=== PATIENT | female | born 1945 | race Caucasian/White ===

== ENCOUNTER 2017-02-25 10:01 | Outpatient (RCR) | payer MEDICARE, OTHER ==
[~2017-02-25 10:01] MED LIST: PNT40TEC PO
== END 2017-04-02 09:34 | disposition home or self-care (01) ==
PROVIDERS: ATTEND Orthopaedic Surgery
DX: S42.252D Displaced fracture of greater tuberosity of left humerus, subsequent encounter for fracture with routine healing (principal)

== ENCOUNTER → 2017-03-07 | Outpatient (CLI) | payer MEDICARE, OTHER ==
--- NOTE | 2017-03-07 11:05 | Diagnostic Imaging Report ---
PROCEDURE: MRI left upper extremity without contrast. TECHNIQUE: Multiplanar, multisequence non contrast-enhanced MRI of the left upper extremity was accomplished. Indication: Fall. Shoulder fracture. Painful full range of motion. FINDINGS: There is bone marrow edema and flattening of the anterolateral aspect of the humeral head compatible with a depressed fracture. This is probably subacute with relatively mild degree of contusion and bone marrow edema for the deformity. Alternatively this could be an acute contusion on top of an old fracture. There is no bone marrow abnormality seen in the scapula. The acromioclavicular joint demonstrates mild inferior osteophyte formation. This is abutting the myotendinous junction of the supraspinatus which demonstrate high-grade partial tears along the articular and bursal side involving also the infraspinatus. The subscapular tendon appears unremarkable. The long head biceps tendon is within its groove. The labrum demonstrates increased signal at and posterior to the biceps anchor, suggestive of a SLAP tear. The muscle bulk and signal is normal. IMPRESSION: 1. There is a bone contusion with a deformity along the anterolateral aspect of the humeral head. This could be related to a subacute depressed fracture or contusion on top of an old injury and deformity. 2. High-grade partial tears in the supraspinatus and infraspinatus tendons. 3. Suggestion of a focal SLAP tear near the biceps anchor. Report was faxed to office of Dr. Arellano by charles at 11:08 am. Dictated by: Dictated on workstation # [id number]
== END ==
LOC: RAD 09:42
PROVIDERS: ATTEND Orthopaedic Surgery
DX: S40.012A Contusion of left shoulder, initial encounter (principal); M75.102 Unspecified rotator cuff tear or rupture of left shoulder, not specified as traumatic; X58.XXXA Exposure to other specified factors, initial encounter; Y99.8 Other external cause status
CPT/HCPCS: 73221

== ENCOUNTER → 2017-05-01 | Outpatient (CLI) | payer MEDICARE, OTHER ==
--- NOTE | 2017-05-01 09:49 | Diagnostic Imaging Report ---
Examination: DEXA scan. Indication: osteopenia Technique: Bone mineral density estimated based on dual energy radiography over the lumbar spine and femoral necks, was performed. Findings: The lumbar spine T-score is -0.8. The T-score over the left femoral neck is -0.7 and on the right side is -0.2. IMPRESSION: Bone mineral density is near the lower limits of normal. Dictated by: Dictated on workstation # [id number]
--- NOTE | 2017-05-02 20:15 | Diagnostic Imaging Report ---
Bilateral screening mammogram 2D views with tomosynthesis. The current study was also evaluated with a Computer Aided Detection (CAD) system. INDICATION: Screening. No current complaints stated on the questionnaire. COMPARISON: 09/13/13 FINDINGS: The breasts are composed of scattered fibroglandular densities. There are scattered benign-appearing calcifications. Allowing for technique and positional differences, no suspicious change is seen. IMPRESSION: No significant change. ACR BI-RADS Category 2: Benign findings. Result letter will be mailed to the patient. Note: At least 10% of breast cancer is not imaged by mammography. Dictated on workstation # [id number]
== END ==
LOC: RAD 08:47
PROVIDERS: ATTEND Family Medicine
DX: Z12.31 Encounter for screening mammogram for malignant neoplasm of breast (principal); Z13.820 Encounter for screening for osteoporosis; E55.9 Vitamin D deficiency, unspecified
CPT/HCPCS: 77067; 77080

== ENCOUNTER → 2017-08-05 | Outpatient (CLI) | payer MEDICARE, OTHER ==
--- NOTE | 2017-08-05 11:20 | Diagnostic Imaging Report ---
INDICATION: Hip replacement. TECHNIQUE: PA and lateral views of the chest were obtained. COMPARISON: 08/10/2013. FINDINGS: The heart size is normal. The mediastinum is unremarkable. There is old granulomatous disease in the left hilum. There is no pleural effusion, pneumothorax, or pneumonia. IMPRESSION: No acute cardiopulmonary abnormality. Dictated by: Dictated on workstation # [id number]
== END ==
LOC: CARD 10:12
PROVIDERS: ATTEND Nurse Practitioner Family
DX: Z01.810 Encounter for preprocedural cardiovascular examination (principal); Z01.811 Encounter for preprocedural respiratory examination; M16.11 Unilateral primary osteoarthritis, right hip
CPT/HCPCS: 71046; 93005

== ENCOUNTER 2017-11-17 09:00 | Outpatient (CLI) | payer MEDICARE, OTHER ==
[~2017-11-17] VITALS: Ht 170.2 cm; Wt 80.7 kg
== END 2017-11-17 10:20 ==
LOC: PREOP 09:00
PROVIDERS: ATTEND Specialist
DX: Z01.818 Encounter for other preprocedural examination (principal); H25.12 Age-related nuclear cataract, left eye

== ENCOUNTER 2017-11-21 06:01 | Day surgery (SDC) | payer MEDICARE, OTHER ==
[~2017-11-21] VITALS: Ht 170.2 cm; Wt 80.7 kg
--- OUTSIDE RECORDS SUMMARY | 2017-11-21 06:04 | XMS REPORT | Clinical Summary ---
Author Author [facility] Organization [facility] Address Unknown Phone Unavailable Care Team Providers Care Grades 1 Thru 6 Home Teacher Name Role Phone Linette Canada MD PCP Leatha Madsen MD Unavailable José Luis Bruner MD Unavailable Juan Clayton MD Unavailable Jese Trujillo MD Unavailable Joaquim Haynes RN Unavailable Unavailable Kevin Hamomnds MD Unavailable Wilma Shepard RN Unavailable Unavailable Source Comments Some departments are not documenting in the electronic medical record. If you do not see the information that you expected, contact Release of Information in the Health Information Management department at [phone] for further assistance in locating additional records.[facility] Allergies Active Allergy Reactions Severity Noted Date Comments Benzo-Creme RASH, EDEMA 12/14/2010 Current Medications Prescription Sig. Disp. Refills Start End Date Status Date aluminum/magnesium Take 30 mL by mouth every 1 Bottle 1 02/28/20 Active hydroxide (MAALOX) 8 hours as needed. 11 200/200 mg/5 mL PO Susp oral suspension acetaminophen/codeine Take 12.5 mL by mouth 1 Bottle 0 02/28/20 Active (TYLENOL NO.3) 120/12 every 6 hours as needed 11 mg/5 mL PO elixir for Pain. Please ensure patient receives 2 week supply. oxyCODONE (ROXICODONE) 1 Take 5 mL by mouth every 150 mL 0 03/29/20 Active mg/mL PO oral solution 6 hours as needed. 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 Malnutrition of moderate degree (HCC) 02/22/2011 Neuroendocrine tumor 01/16/2011 Pancreatic duct leak 01/16/2011 Immunizations Name Dates Previously Given Next Due Acthib Vaccine 12/14/2010 Meningococcal Vaccine 12/14/2010 Pneumococcal Vaccine 12/14/2010 (23-Elvira Adult) Family History Medical History Relation Name Comments Cancer Brother Arthritis-osteo Father Cancer Father Hypertension Father Diabetes Maternal Grandfather Relation Name Status Comments Brother Father Maternal Grandfather Social History Tobacco Use Types Packs/Day Years Used Date Never Smoker Smokeless Tobacco: Never Used Alcohol Use Drinks/Week oz/Week Comments No Sex Assigned at Date Recorded Not on file Last Filed Vital Signs Vital Sign Reading Time Taken Blood Pressure 120/63 03/29/2011 7:49 AM CDT Pulse 69 03/29/2011 7:49 AM CDT Temperature 36.8 C (98.2 F) 03/29/2011 7:49 AM CDT Respiratory Rate 16 03/11/2011 9:58 AM CDT Oxygen Saturation 93% 03/29/2011 7:49 AM CDT Inhaled Oxygen - - Concentration Weight 81.1 kg (178 lb 14.4 oz) 03/29/2011 3:40 AM CDT Height 170.2 cm (5' 7.01") 03/25/2011 10:00 AM CDT Body Mass Index 28.01 03/29/2011 3:40 AM CDT Plan of Treatment Health Maintenance Due Date Last Done Comments HEPATITIS C SCREENING 1945 PHYSICAL (COMPREHENSIVE) 1954 EXAM PERTUSSIS VACCINE 1958 TETANUS VACCINE 1964 BREAST CANCER SCREENING 1987 COLORECTAL CANCER 1997 SCREENING SHINGLES VACCINE 2007 OSTEOPOROSIS SCREENING 2012 PREVNAR/PNEUMOVAX (#1) 2012 12/14/2010 INFLUENZA VACCINE 04/27/2018 Results Not on filefrom Last 3 Months
--- OUTSIDE RECORDS SUMMARY | 2017-11-21 06:04 | XMS REPORT | Clinical Summary ---
Author Author Korey Kumar MD, James Organization [facility], [facility] Address [address] [place] [address] Phone Care Team Providers Care Trip Rider Name Role Phone Korey Kumar MD, James Unavailable [ ] Conditions or Problems Problem Name Problem Code Onset Date Status Entry Date Provider Comment Standard Description Annotate Pain in right hip 74593554 (SNOMED CT) Active Irish Leap Hip pain Degenerative joint disease, hip, right 326261777 (SNOMED CT) Active Irsih Leap Osteoarthritis of hip Medications Medication Instructions Start Date Stop Date Generic Name [facility] Provider TRAMADOL HCL ER 100 MG [id number] i cap daily TRAMADOL HCL [id number] Bela Jones TYLENOL 325 MG CAPS BID ACETAMINOPHEN [id number] Bela Jones LATRICE LOW DOSE 81 MG CHEW daily ASPIRIN [id number] Bela Jones ADVIL COLD & SINUS LIQUI-GELS 30-200 MG CAPS PSEUDOEPHEDRINE- IBUPROFEN [id number] Bela Jones Medications Administered No information available. Allergies, Adverse Reactions, Alerts Observed no known allergies at Results Date Name Value Unit Range Flag Description Clinical Summary: Data Submitted by Patient in Portal IMAGING HX MRI -[facility], Apr 2016, [place], [place] summary of prior imaging studies DEP ROS ENDO Denies endocrine symptoms data entered by patient, review of systems, endocrine DEP ROS SKIN Denies skin symptoms data entered by patient, review of systems, skin DEP ROS PSYC Denies mental health symptoms data entered by patient, review of systems, psychiatric DEP ROS NEUR Denies neurological symptoms data entered by patient, review of systems, neurology DEP ROS MUSK hip pain, muscle weakness data entered by patient, review of systems, musculoskeletal DEP ROS Denies Genitourinary symptoms data entered by patient, review of systems, genitourinary DEP ROS CARD Denies heart symptoms data entered by patient, review of systems, cardiac DEP ROS PULM Denies respiratory symptoms data entered by patient, review of systems, pulmonary DEP ROS GI Denies gastrointestinal symptoms data entered by patient, review of systems, gastrointestinal DEP ROS HEME Denies Hematologic/Oncologic symptoms data entered by patient, review of systems, hematological DEP ROS GENL Seen primary care physican in the last year data entered by patient, review of systems, general (such as fever, chills, weight change, etc.) [id number] Better GE use only - for LinkLogic import when terms are not otherwise specified TPI April 2017 Trigger point injection PT MASSAGE No physical therapy, massage ICETRTMT No Patient has tried ice for pain PAINRELFPAST daily pain relief methods, past HEATTRTMT Yes Patient has tried heat for pain CHIROPR PROB No 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 list of medications ALLERGY COMM Allergic to topical Benzocaine comments about allergies FH HTN Mother,Father,Sister,Brother hypertension, family hx FH DM TYPE1 Maternal Grandfather diabetes mellitus, type I, family history FH OTHER CA Father,Brother cancer, other, family hx FH ARTHRITIS Mother,Father arthritis, family hx DEP ALG LIST I don't have any food allergies.,I don't have any environmental allergies. Data entered by patient, allergy list DEP MED LIST Tramadol 100 mg Cap Er, 1 times per day,Ibuprofen / Pseudoephedrine 200 mg;30 mg Tab, 2 times per day,Tylenol 500 mg Tab, 2 times per day Data entered by patient, medication list Clinical Summary: Patient Portal Indicator IZABELA Y This will be used to establish a PIN number for patients to register in the Patient Portal. Office Visit: New. Rt hip pain. Films in hand. Medicare/. Sched w/ p... RADIOLOGYRES Osteoarthritis Hip- AP Pelvis and lateral of the hip demonstrates osteoarthritis joint space narrowing. Sclerosis and osteophyte formation noted radiology results, general ORALTOBACUSE No Tobacco smoking status NHIS SMOK STATUS Never smoker Tobacco smoking status [facility] CARD RSK GRP No cardiac risk group FALLRISK no Fall risk assessment XRAY HX Yes xray history XRAY TYPE MRI xray, type Plan of Care No information available. Procedures Code Procedure Name Date Entry Date CPT-73944 Hip 2 Views [id number] SNOMED-CT: 485377598 Hx of Flu Vax [id number] SNOMED-CT: 733200331 Hx of Pneumovax Given CPT-1111F Discharge medications reconciled w/ current medication list CPT-G8629 order for antibiotic to be given within 1 hour prior to surgical incision CPT-4040F Pneumococcal vaccine administered or previously received CPT-G8730 Pain assessment documented as positive and f/u plan is documented CPT-1111F Discharge medications reconciled w/ current medication list CPT-1111F Discharge medications reconciled w/ current medication list [id number] SNOMED-CT: 539798114 Hx of Flu Vax CPT-1111F Discharge medications reconciled w/ current medication list Vital Signs Date Name Value Unit Description BMI (Body Mass Index) 33.63 kg/m2 Body Mass Index [Ratio] BP Diastolic 80 mm[Hg] blood pressure, diastolic - 8462-4 BP Systolic 110 mm[Hg] blood pressure, systolic - 8480-6 Height 61 [in_us] height E&M - 8302-2 Weight Measured 178 [lb_av] weight E&M - 3141-9 Encounters Code Encounter Date Provider Facility CPT-35827 80637- New Level III Jerman Nair Jr, MD [facility], [facility] Social History Concept Description Observation Name Observation Value Units Start Date Alcohol use ETOH USE No Never smoker SMOK STATUS Never smoker Alcohol use ETOH USE No Never smoker SMOK STATUS never smoker
--- OUTSIDE RECORDS SUMMARY | 2017-11-21 06:04 | XMS REPORT | Clinical Summary ---
Author Author Kya Ruth Organization [facility], [facility] Address [address] [place] [address] Phone Care Team Providers Care Ela Teacher Name Role Phone Faraz Kya Unavailable Conditions or Problems No information available. Medications No information available. Medications Administered No information available. Allergies, Adverse Reactions, Alerts No information available. Results Date Name Value Unit Range Flag Description Clinical Summary: Data Submitted by Patient in Portal ALCDRUG No Abused drugs or alcohol? TRAVEL HX Yes travel history #DRINKS/OCCS N/A alcohol use, number maximum drinks per occasion ETOH USE No alcohol use ORALTOBACUSE No Tobacco smoking status NHIS SMOK STATUS never smoker Tobacco smoking status HIIS FH ANEST CMP No family hx of anesthesia complications FATHER A/D father of patient is alive or MOTHER A/D Alive mother of patient is alive or LASTPNEUMVAX within the last 2 years pneumovax ( pneumonia vaccine), last received FLU VAX 6-12 months ago influenza immunization (Flu Vax ) has been administered EXERTSOBHX Yes exertional shortness of breath, hx of ASTH BREATH No Asthma Shortness of breath symptoms CARD RSK GRP No cardiac risk group CARD RF CMTS No Cardiac risk factor comments CHF TYPE No congestive heart failure (CHF), type CHF SYMPTOMS No congestive heart failure symptoms PMH CARD Denies Cardiac Problems cardiology, past medical hx PMH OTHER Denies Other Problems problems, other, hx of PMH MUL PREG Not multiple pregnancies, hx of PMH GUPROBS Denies Urinary problems genitourinary disorder, hx of PMH HEPTITIS Denies hepatic problems hepatitis, hx of PMH GERD Denies gastrointestinal problems gastroesophageal reflux disease (GERD), hx of PMH HEMATLGC Denies hematologic problems hematologic disease, hx of PULMPMH Denies respiratory problems Pulmonary Past Medical History PMH CANCER Denies History of Cancer cancer, hx of PMH-ENDOCOM Denies Endocrine problems endocrinology, past medical history, comments PMH NPSYCH Denies Mental Health problems neuropsychological disease, hx of PMH NEURO Denies Neurological problems past medical history, neurology PMH RHEUM Arthritis Past Medical History Rheumatology XRAY HX Yes xray history IMAGING HX MRI -[facility], Apr 2016, [place], [place] summary of prior imaging studies XRAY TYPE MRI xray, type PMH SURGERY 1/3 of pancreas removed 2010 surgery, other , hx of PMH ABD SURG No Past Medical Hx of Abdominal Surgery PMH URO SX No Past Medical Hx of Urological Surgery CARDIO SURG No cardiovascular surgery, hx of HXENTSURG No History of [facility]; hysterectomy genitourinary section, past surgical history, comments [employer] SURGERY Yes gynecologic surgery, [facility] Knee musculoskeletal section, past surgical history, comments HXMUSCSURG Yes History of musculoskeletal surgery DEP ROS ENDO Denies endocrine symptoms data [...] PROB No 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 Plan of Care Type Date Detail Appointment 03:00 [place], [address] , [address], [place], [address], Procedures No information available. Vital Signs No information available. Encounters No information available. Social History Concept Description Observation Name Observation Value Units Start Date Alcohol use ETOH USE No Never smoker SMOK STATUS never smoker
--- OUTSIDE RECORDS SUMMARY | 2017-11-21 06:05 | XMS REPORT | CCD ---
Author Author Stefanie Presley Organization [facility] Address [address] [place] [address] Phone Care Team Providers Care [employer]ucer Machine Name Role Phone PP Unavailable CCM Unavailable Summary Purpose Interface Exchange Insurance Providers Payer name Policy type / Coverage type Covered green party ID Effective Begin Date Effective End Date WPS Medicare Part B Medicare Part B [id number] Unknown Unknown [facility] Medicare Part B [id number] Unknown Unknown Family history Father Diagnosis Age At Onset Cancer Unknown Arthritis Unknown Hypertension Unknown Mother Diagnosis Age At Onset Osteoporosis Unknown Hypertension Unknown Brother Diagnosis Age At Onset Hypertension Unknown Sister Diagnosis Age At Onset Hypertension Unknown Social History Social History Element Codes Description Effective Dates Marital status Unknown Tim PaulinoRahul Cantu 06/26/2015 Number of children Unknown 5 4 Living 06/26/[address]: 586401605 Never smoker 06/26/[address]: 174831324 Never drinks alcohol 06/26/2015 Has the patient ever used illegal drugs? Unknown Has never used illegal drugs 06/26/2015 Allergies, Adverse Reactions, Alerts Allergies, Adverse Reactions, Alerts data not found Past Medical History Illness Codes Condition Status Onset Date Resolved Date Dysuria ICD-9: 788.1 ICD-10: R30.0 Active 08/05/2017 Unknown Benign paroxysmal vertigo, bilateral ICD-9: 386.11 ICD-10: H81.13 Active 04/28/2017 Unknown Displaced fracture of greater tuberosity of left humerus, subsequent encounter for fracture with delayed healing ICD-9: V54.11 ICD-10: S42.252G Active 04/22/2017 Unknown Muscle weakness (generalized) ICD-9: 728.87 ICD-10: M62.81 Active 06/25/2015 Unknown Pain in left shoulder ICD-9: 719.41 ICD-10: M25.512 Active 04/22/2017 Unknown Pain in right hip ICD- 9: 719.45 ICD-10: M25.551 Active 04/22/2017 Unknown Vitamin D deficiency, unspecified ICD-9: 268.9 ICD-10: E55.9 Active 01/14/2016 Unknown Other seborrheic keratosis ICD-9: 702.19 ICD-10: L82.1 Active 01/14/2016 Unknown Acute maxillary sinusitis, unspecified ICD-9: 461.0 ICD-10: J01.00 Active 08/13/2015 Unknown Obesity, unspecified ICD-9: 278.00 ICD-10: E66.9 Active 08/13/2015 Unknown Abnormal results of thyroid function studies ICD-9: 794.5 ICD-10: R94.6 Active 06/25/2015 Unknown Dorsalgia, unspecified ICD-9: 724.5 ICD-10: M54.9 Active 06/25/2015 Unknown Personal history of malignant neoplasm of pancreas ICD-9: V10.09 ICD-10: Z85.07 Active 06/25/2015 Unknown Problems Condition Codes Effective Dates Condition Status Dysuria ICD-9: 788.1 ICD-10: R30.0 08/05/2017 Active Benign paroxysmal vertigo, bilateral ICD-9: 386.11 ICD-10: H81.13 04/28/2017 Active Displaced fracture of greater tuberosity of left humerus, subsequent encounter for fracture with delayed healing ICD-9: V54.11 ICD-10: S42.252G 04/22/2017 Active Muscle weakness (generalized) ICD-9: 728.87 ICD-10: M62.81 06/25/2015 Active Pain in left shoulder ICD-9: 719.41 ICD-10: M25.512 04/22/2017 Active Pain in right hip ICD- 9: 719.45 ICD-10: M25.551 04/22/2017 Active Vitamin D deficiency, unspecified ICD-9: 268.9 ICD-10: E55.9 01/14/2016 Active Other seborrheic keratosis ICD-9: 702.19 ICD-10: L82.1 01/14/2016 Active Acute maxillary sinusitis, unspecified ICD-9: 461.0 ICD-10: J01.00 08/13/2015 Active Obesity, unspecified ICD-9: 278.00 ICD-10: E66.9 08/13/2015 Active Abnormal results of thyroid function studies ICD-9: 794.5 ICD-10: R94.6 06/25/2015 Active Dorsalgia, unspecified ICD-9: 724.5 ICD-10: M54.9 06/25/2015 Active Personal history of malignant neoplasm of pancreas ICD-9: V10.09 ICD-10: Z85.07 06/25/2015 Active Medications Medication Codes Instructions Start Date Stop Date Status Fill Instructions Keflex 500 mg capsule RxNorm: 275009 1 Capsule(s) PO TID 201708/11/2017 Active Keflex 500 mg capsule RxNorm: 097369 1 Capsule(s) PO TID 201708/04/2017 Inactive Vitamin D3 5,000 unit tablet RxNorm: 414065 1 Tablet(s) PO daily 07/23/2017 10/20/2017 Active Start after vit d2 treatment Vitamin D2 50,000 unit capsule RxNorm: 537403 TAKE ONE CAPSULE BY MOUTH ONCE WEEKLY. TAKE VITAMIN D3 5000 UNIT TABLET DAILY AFTER VITAMIN D2 COMPLETE. 07/14/2017 10/05/2017 Active Kenalog 40 mg/mL suspension for injection RxNorm: 6064323 1 Milliliter(s) Inj 04/28/2017 04/28/2017 Inactive Vitamin D2 50,000 unit capsule RxNorm: 191966 1 Capsule(s) PO QW x12 04/25/2017 07/13/2017 Inactive Take vit d3 5000 units daily after vit d2 complete Vitamin D3 5,000 unit tablet RxNorm: 371700 1 Tablet(s) PO daily 04/25/2017 04/24/2017 Inactive Start after vit d2 treatment tramadol 50 mg tablet RxNorm: 028836 1 Tablet(s) PO TID as needed 04/22/2017 No Stop Date Active aspirin 81 mg tablet RxNorm: 379244 1 Tablet(s) PO daily 201606/15/2018 Active Belviq XR 20 mg tablet,extended release RxNorm: 2703217 1 Tablet(s) PO daily 04/22/2017 06/20/2017 Inactive Metrogel 1 % topical RxNorm: 070683 1 Application TOP as needed for rosacea 11/04/2016 No Stop Date Active tramadol 50 mg tablet RxNorm: 252014 1 Tablet(s) PO TID as needed for pain 08/02/2016 10/20/2016 Inactive tramadol 50 mg tablet RxNorm: 622516 1 Tablet(s) PO TID as needed for pain 08/02/2016 08/01/2016 Inactive Vitamin D2 50,000 unit capsule RxNorm: 627813 1 Capsule(s) PO QW 01/15/2016 04/13/2016 Inactive Belviq 10 mg tablet RxNorm: 2376543 Tablet(s) TAKE ONE TABLET BY MOUTH TWICE A DAY 01/10/2016 01/14/2016 Inactive Vitamin D2 50,000 unit capsule RxNorm: 609575 TAKE ONE CAPSULE BY MOUTH ONCE WEEKLY 09/25/2015 12/17/2015 Inactive Belviq 10 mg tablet RxNorm: 3317216 Tablet(s) TAKE ONE TABLET BY MOUTH TWICE A DAY 09/11/2015 10/09/2015 Inactive azithromycin 250 mg tablet RxNorm: 101415 1 Tablet(s) PO UD take two pills on day #1, then one pill daily x 4 days 08/14/2015 08/18/2015 Inactive Noritate 1 % topical cream RxNorm: 686458 1 Application TOP PRN use for rosacea 08/14/2015 11/03/2016 Inactive Belviq 10 mg tablet RxNorm: 9644120 Tablet(s) TAKE ONE TABLET BY MOUTH TWICE A DAY 08/11/2015 09/05/2015 Inactive Belviq 10 mg tablet RxNorm: 4777470 TAKE ONE TABLET BY MOUTH TWICE A DAY 08/07/2015 08/10/2015 Inactive Belviq 10 mg tablet RxNorm: 3806344 1 Tablet(s) PO BID 201408/08/2015 Inactive Vitamin D2 50,000 unit capsule RxNorm: 639942 1 Capsule(s) PO QW 07/03/2015 09/24/2015 Inactive Belviq 10 mg tablet RxNorm: 5940711 1 Tablet(s) PO BID 201401/09/2016 Inactive Vitamin D2 50,000 unit capsule RxNorm: 748713 1 Capsule(s) PO QW No Start Date 07/02/2015 Inactive biotin 5 mg tablet RxNorm: 997351 1 Tablet(s) PO daily No Start Date 04/21/2017 Inactive Metrogel 1 % topical RxNorm: 945378 1 Application TOP as needed for rosacea No Start Date 11/03/2016 Inactive magnesium oxide 400 mg capsule RxNorm: 572933 1 Capsule(s) PO daily No Start Date 04/21/2017 Inactive multivitamin oral RxNorm: 89755 oral No Start Date 04/21/2017 Inactive aspirin 81 mg tablet RxNorm: 074142 1 Tablet(s) PO daily No Start Date 04/21/2017 Inactive PreserVision AREDS oral RxNorm: 477709 oral No Start Date 04/21/2017 Inactive Medication Administered Medication Codes Instructions Start Date Status Kenalog 40 mg/mL suspension for injection RxNorm: 1815294 1Milliliter 04/28/2017 No longer Active Immunizations Vaccine Codes Date Status Influenza CVX: 141 05/08/2016 completed Influenza CVX: 141 04/27/2015 completed Pneumococcal (Adult) CVX: 33 04/27/2015 completed Assessments Condition Codes Effective Dates Dysuria ICD-10: R30.0 ICD-9: 788.1 08/05/2017 Benign paroxysmal vertigo, bilateral ICD-10: H81.13 ICD-9: 386.11 04/28/2017 Vitamin D deficiency, unspecified ICD-10: E55.9 ICD-9: 268.9 04/22/2017 Pain in right hip ICD-10: M25.551 ICD-9: 719.45 04/22/2017 Displaced fracture of greater tuberosity of left humerus, subsequent encounter for fracture with delayed healing ICD-10: S42.252G ICD-9: V54.11 04/22/2017 Muscle weakness (generalized) ICD-10: M62.81 ICD-9: 728.87 04/22/2017 Pain in left shoulder ICD-10: M25.512 ICD-9: 719.41 04/22/2017 Other seborrheic keratosis ICD-10: L82.1 ICD-9: 702.19 01/15/2016 Obesity, unspecified ICD-10: E66.9 ICD-9: 278.00 08/14/2015 Acute maxillary sinusitis, unspecified ICD-10: J01.00 ICD-9: 461.0 08/14/2015 Dorsalgia, unspecified ICD-10: M54.9 ICD-9: 724.5 06/26/2015 Abnormal results of thyroid function studies ICD-10: R94.6 ICD-9: 794.5 06/26/2015 Personal history of malignant neoplasm of pancreas ICD-10: Z85.07 ICD-9: V10.09 06/26/2015 Reason For Visit Reason For Visit Effective Dates Notes dizziness 04/28/2017 well woman exam (65+ years) 04/22/2017 midback pain 01/15/2016 midback pain 08/14/2015 midback pain 06/26/2015 Results Observation Observation Code Item Item Code Result Date Culture Urine [id number] URINE CULTURE SEE NOTES 08/08/2017 Culture Urine [id number] Continued Results 08/08/2017 Urine Culture Ucult Complete >100,000 col/ml aerobic growth sent to ref lab 08/06/2017 Comp Metabolic Ctl271 NA 143 mEq/L 07/30/2017 Comp Metabolic Ooz746 K 4.5 mEq/L 07/30/2017 Comp Metabolic Ygo631 CL 103 mEq/L 07/30/2017 Comp Metabolic Iyg965 CO2 30.0 mEq/L 07/30/2017 Comp Metabolic Fjy908 ANION GAP 15 07/30/2017 Comp Metabolic Iqd529 GLUCOSE 98 mg/dL 07/30/2017 Comp Metabolic Lgp824 Creat 0.7 mg/dL 07/30/2017 Comp Metabolic Mmo928 eGFR 92 ml/min/1.73m2 07/30/2017 Comp Metabolic Fgc456 BUN 17 mg/dL 07/30/2017 Comp Metabolic Ldu741 B/C Ratio 25.4 Ratio 07/30/2017 Comp Metabolic Idf219 CALCIUM 10.4 mg/dL 07/30/2017 Comp Metabolic Uzv632 ALK PHOS 93 U/L 07/30/2017 Comp Metabolic Yol568 AST(SGOT) 14 U/L 07/30/2017 Comp Metabolic Dwv314 ALT(SGPT) 10 U/L 07/30/2017 Comp Metabolic Pmo214 BILI T 0.8 mg/dL 07/30/2017 Comp Metabolic Eyf895 ALBUMIN 5.1 g/dL 07/30/2017 Comp Metabolic Jbk737 TPRO 7.2 g/dL 07/30/2017 Comp Metabolic Phd035 GLOB 2.1 g/dL 07/30/2017 Comp Metabolic Qgx397 A/G Ratio 2.4 Ratio 07/30/2017 Comp Metabolic Xtd824 Osmo 286 mOsmo 07/30/2017 Cbc With Differential Ord2 WBC 4.82 K/ul 07/30/2017 Cbc With Differential Ord2 RBC 4.46 M/ul 07/30/2017 Cbc With Differential Ord2 HGB 13.8 g/dl 07/30/2017 Cbc With Differential Ord2 Neut% 67.7 % 07/30/2017 Cbc With Differential Ord2 HCT 42.6 % 07/30/2017 Cbc With Differential Ord2 MCV 95.5 fl 07/30/2017 Cbc With Differential Ord2 Lymph% 19.3 % 07/30/2017 Cbc With Differential Ord2 Payette% 11.2 % 07/30/2017 Cbc With Differential Ord2 MCH 30.9 pg 07/30/2017 Cbc With Differential Ord2 Eos% 1.2 % 07/30/2017 Cbc With Differential Ord2 MCHC 32.4 pg 07/30/2017 Cbc With Differential Ord2 Baso% 0.6 % 07/30/2017 Cbc With Differential Ord2 PLT 203 K/ul 07/30/2017 Cbc With Differential Ord2 Neut ABS# 3.26 K/ul 07/30/2017 Cbc With Differential Ord2 RDW 14.9 % 07/30/2017 Cbc With Differential Ord2 Lymph ABS# 0.93 K/ul 07/30/2017 Cbc With Differential Ord2 [place] ABS# 0.5 K/ul 07/30/2017 Cbc With Differential Ord2 Eos ABS# 0.1 K/ul 07/30/2017 Cbc With Differential Ord2 Baso ABS# 0.0 K/ul 07/30/2017 Comp Metabolic Yew031 NA 142 mEq/L 04/23/2017 Comp Metabolic Rqz577 K 4.6 mEq/L 04/23/2017 Comp Metabolic Wcf741 CL 106 mEq/L 04/23/2017 Comp Metabolic Tza390 CO2 28.0 mEq/L 04/23/2017 Comp Metabolic Azm048 ANION GAP 13 04/23/2017 Comp Metabolic Ddk843 GLUCOSE 97 mg/dL 04/23/2017 Comp Metabolic Veh626 Creat 0.6 mg/dL 04/23/2017 Comp Metabolic Stk230 eGFR 99 ml/min/1.73m2 04/23/2017 Comp Metabolic Fve491 BUN 20 mg/dL 04/23/2017 Comp Metabolic Zcg976 B/C Ratio 31.7 Ratio 04/23/2017 Comp Metabolic Ubn800 CALCIUM 9.9 mg/dL 04/23/2017 Comp Metabolic Jzc329 ALK PHOS 74 U/L 04/23/2017 Comp Metabolic Hzu450 AST(SGOT) 12 U/L 04/23/2017 Comp Metabolic Nmj295 ALT(SGPT) 11 U/L 04/23/2017 Comp Metabolic Whh851 BILI T 0.7 mg/dL 04/23/2017 Comp Metabolic Nii204 ALBUMIN 4.7 g/dL 04/23/2017 Comp Metabolic Riz789 TPRO 6.5 g/dL 04/23/2017 Comp Metabolic Loc414 GLOB 1.8 g/dL 04/23/2017 Comp Metabolic Cku506 A/G Ratio 2.6 Ratio 04/23/2017 Comp Metabolic Mkd679 Osmo 286 mOsmo 04/23/2017 Tsh Ord6 hTSH II 2.41 uIU/mL 04/23/2017 Vitamin D 25 Oh Cfw5961 VITAMIN D, 25 HYDROXY 18.93 ng/mL Lipid Ord30 CHOL 202 mg/dL 04/23/2017 Lipid Ord30 HDL 62.0 mg/dl 04/23/2017 Lipid Ord30 TRIG 62 mg/dL 04/23/2017 Lipid Ord30 LDL 128 mg/dL 04/23/2017 Lipid Ord30 C/HDL 3.3 Ratio 04/23/2017 Cbc With Differential Ord2 WBC 3.59 K/ul 04/23/2017 Cbc With Differential Ord2 RBC 4.05 M/ul 04/23/2017 Cbc With Differential Ord2 HGB 12.8 g/dl 04/23/2017 Cbc With Differential Ord2 Neut% 52.1 % 04/23/2017 Cbc With Differential Ord2 HCT 39.4 % 04/23/2017 Cbc With Differential Ord2 Lymph% 31.8 % 04/23/2017 Cbc With Differential Ord2 MCV 97.3 fl 04/23/2017 Cbc With Differential Ord2 MCH 31.6 pg 04/23/2017 Cbc With Differential Ord2 Payette% 11.4 % 04/23/2017 Cbc With Differential Ord2 MCHC 32.5 pg 04/23/2017 Cbc With Differential Ord2 Eos% 3.6 % 04/23/2017 Cbc With Differential Ord2 PLT 183 K/ul 04/23/2017 Cbc With Differential Ord2 Baso% 1.1 % 04/23/2017 Cbc With Differential Ord2 RDW 13.9 % 04/23/2017 Cbc With Differential Ord2 Neut ABS# 1.87 K/ul 04/23/2017 Cbc With Differential Ord2 Lymph ABS# 1.14 K/ul 04/23/2017 Cbc With Differential Ord2 [place] ABS# 0.4 K/ul 04/23/2017 Cbc With Differential Ord2 Eos ABS# 0.1 K/ul 04/23/2017 Cbc With Differential Ord2 Baso ABS# 0.0 K/ul 04/23/2017 Vitamin D 25 Oh Jub8740 VITAMIN D, 25 HYDROXY 21.06 ng/mL Lipid Ord30 CHOL 215 mg/dL 06/27/2015 Lipid Ord30 HDL 56.0 mg/dl 06/27/2015 Lipid Ord30 TRIG 85 mg/dL 06/27/2015 Lipid Ord30 LDL 142 mg/dL 06/27/2015 Lipid Ord30 C/HDL 3.8 Ratio 06/27/2015 Tsh Ord6 hTSH II 4.58 uIU/mL 06/27/2015 Comp Metabolic Xac058 NA 141 mEq/L 06/27/2015 Comp Metabolic Arg272 K 4.0 mEq/L 06/27/2015 Comp Metabolic Paj311 CL 103 mEq/L 06/27/2015 Comp Metabolic Eql289 CO2 34.0 mEq/L 06/27/2015 Comp Metabolic Ixq039 ANION GAP 8 06/27/2015 Comp Metabolic Nwi772 GLUCOSE 90 mg/dL 06/27/2015 Comp Metabolic Kgz038 Creat 0.7 mg/dL 06/27/2015 Comp Metabolic Bkx459 eGFR 91 ml/min/1.73m2 06/27/2015 Comp Metabolic Axc767 BUN 20 mg/dL 06/27/2015 Comp Metabolic Pwn219 B/C Ratio 29.4 Ratio 06/27/2015 Comp Metabolic Ccl825 CALCIUM 10.1 mg/dL 06/27/2015 Comp Metabolic Omi294 ALK PHOS 85 U/L 06/27/2015 Comp Metabolic Vki867 AST(SGOT) 15 U/L 06/27/2015 Comp Metabolic Pty904 ALT(SGPT) 11 U/L 06/27/2015 Comp Metabolic Tub988 BILI T 0.7 mg/dL 06/27/2015 Comp Metabolic Imw226 ALBUMIN 4.6 g/dL 06/27/2015 Comp Metabolic Otx415 TPRO 6.5 g/dL 06/27/2015 Comp Metabolic Oux564 GLOB 1.9 g/dL 06/27/2015 Comp Metabolic Iqz111 A/G Ratio 2.4 Ratio 06/27/2015 Comp Metabolic Otr878 Osmo 283 mOsmo 06/27/2015 Cbc With Differential Ord2 WBC 4.1 K/uL 06/27/2015 Cbc With Differential Ord2 LYM 1.5 K/uL 06/27/2015 Cbc With Differential Ord2 LYM% 36.1 % 06/27/2015 Cbc With Differential Ord2 NEUT/GRAN 2.3 K/uL 06/27/2015 Cbc With Differential Ord2 NEUT/GRAN % 56.7 % 06/27/2015 Cbc With Differential Ord2 MID 0.3 K/uL 06/27/2015 Cbc With Differential Ord2 MID% 7.2 % 06/27/2015 Cbc With Differential Ord2 RBC 4.21 M/uL 06/27/2015 Cbc With Differential Ord2 HGB 12.9 g/dL 06/27/2015 Cbc With Differential Ord2 HCT 40.4 % 06/27/2015 Cbc With Differential Ord2 MCV 96 fL 06/27/2015 Cbc With Differential Ord2 MCH 31 pg 06/27/2015 Cbc With Differential Ord2 MCHC 32 g/dL 06/27/2015 Cbc With Differential Ord2 PLT 164 K/uL 06/27/2015 Cbc With Differential Ord2 RDW 14.9 % 06/27/2015 Free T4 Ezy863 FREE T4 0.82 ng/dL 06/27/2015 Review of Systems System Result Effective Dates Constitutional recent illness 04/28/2017 Constitutional No fatigue 04/28/2017 Constitutional No fever 04/28/2017 Cardiovascular No fatigue 04/28/2017 Cardiovascular No hypertension 2016 Respiratory No cough 04/28/2017 Respiratory No chest congestion 2016 Neurologic dizziness 04/28/2017 Neurologic gait abnormality 04/28/2017 Psychiatric No anxiety 04/28/2017 Psychiatric No depression 04/28/2017 Constitutional No recent illness 2016 Constitutional No chills 04/22/2017 Constitutional fatigue 04/22/2017 Constitutional No fever 04/22/2017 Constitutional No insomnia 04/22/2017 Constitutional No malaise 04/22/2017 Constitutional weight gain 04/22/2017 Eyes No blindness 04/22/2017 Eyes No vision change 04/22/2017 Ears/Nose/Throat/Neck No dental pain Ears/Nose/Throat/Neck No dizziness 2016 Ears/Nose/Throat/Neck No dysphagia 2016 Ears/Nose/Throat/Neck No headache 2016 Ears/Nose/Throat/Neck No hearing loss Ears/Nose/Throat/Neck No nasal allergies 04/22/2017 Ears/Nose/Throat/Neck No sore throat Ears/Nose/Throat/Neck No postnasal drip 04/22/2017 Ears/Nose/Throat/Neck No sinus congestion 04/22/2017 Cardiovascular No chest pain/pressure Cardiovascular No dyspnea 04/22/2017 Cardiovascular No edema 04/22/2017 Cardiovascular No exercise intolerance Cardiovascular No fatigue 04/22/2017 Cardiovascular No near-syncope/dizziness 04/22/2017 Respiratory No chest tightness 2016 Respiratory No cough 04/22/2017 Respiratory No dyspnea 04/22/2017 Respiratory No pedal edema 04/22/2017 Gastrointestinal No abdominal pain 2016 Gastrointestinal No constipation 2016 Gastrointestinal No diarrhea 04/22/2017 Gastrointestinal No gastroesophageal reflux 04/22/2017 Gastrointestinal No nausea 04/22/2017 Gastrointestinal No vomiting 04/22/2017 Genitourinary/Nephrology No dysuria 04/22 Genitourinary/Nephrology No nocturia Genitourinary/Nephrology No urinary incontinence 04/22/2017 Musculoskeletal stiffness 04/22/2017 Musculoskeletal No swelling 04/22/2017 Musculoskeletal arthralgia(s) 04/22/2017 Musculoskeletal back pain 04/22/2017 Musculoskeletal muscle weakness 2016 Musculoskeletal No myalgias 04/22/2017 Dermatologic No rash 04/22/2017 Dermatologic No sores 04/22/2017 Dermatologic No scar 04/22/2017 Neurologic No dizziness 04/22/2017 Neurologic No headache 04/22/2017 Neurologic No neck pain 04/22/2017 Neurologic No syncope 04/22/2017 Psychiatric No anxiety 04/22/2017 Psychiatric No depression 04/22/2017 Constitutional No recent illness 2015 Constitutional No chills 01/15/2016 Constitutional fatigue 01/15/2016 Constitutional No fever 01/15/2016 Constitutional No insomnia 01/15/2016 Constitutional No malaise 01/15/2016 Constitutional weight gain 01/15/2016 Constitutional obesity 01/15/2016 Eyes No blindness 01/15/2016 Eyes No vision change 01/15/2016 Ears/Nose/Throat/Neck No dental pain Ears/Nose/Throat/Neck No dizziness 2015 Ears/Nose/Throat/Neck No dysphagia 2015 Ears/Nose/Throat/Neck No headache 2015 Ears/Nose/Throat/Neck No hearing loss Ears/Nose/Throat/Neck No nasal allergies 01/15/2016 Ears/Nose/Throat/Neck No sore throat Ears/Nose/Throat/Neck No postnasal drip 01/15/2016 Ears/Nose/Throat/Neck No sinus congestion 01/15/2016 Cardiovascular No chest pain/pressure Cardiovascular No dyspnea 01/15/2016 Cardiovascular No edema 01/15/2016 Cardiovascular No exercise intolerance Cardiovascular No fatigue 01/15/2016 Cardiovascular No near-syncope/dizziness 01/15/2016 Respiratory No chest tightness 2015 Respiratory No cough 01/15/2016 Respiratory No dyspnea 01/15/2016 Respiratory No pedal edema 01/15/2016 Gastrointestinal No abdominal pain 2015 Gastrointestinal No constipation 2015 Gastrointestinal No diarrhea 01/15/2016 Gastrointestinal No gastroesophageal reflux 01/15/2016 Gastrointestinal No nausea 01/15/2016 Gastrointestinal No vomiting 01/15/2016 Genitourinary/Nephrology No dysuria 01/14 Genitourinary/Nephrology No nocturia Genitourinary/Nephrology No urinary incontinence 01/15/2016 Musculoskeletal stiffness 01/15/2016 Musculoskeletal No swelling 01/15/2016 Musculoskeletal arthralgia(s) 01/15/2016 Musculoskeletal back pain 01/15/2016 Musculoskeletal muscle weakness 2015 Musculoskeletal No myalgias 01/15/2016 Dermatologic No rash 01/15/2016 Dermatologic No sores 01/15/2016 Dermatologic No scar 01/15/2016 Neurologic No dizziness 01/15/2016 Neurologic No headache 01/15/2016 Neurologic No neck pain 01/15/2016 Neurologic No syncope 01/15/2016 Psychiatric No anxiety 01/15/2016 Psychiatric No depression 01/15/2016 Constitutional No recent illness 2015 Constitutional No chills 08/14/2015 Constitutional No fatigue 08/14/2015 Constitutional No fever 08/14/2015 Constitutional No insomnia 08/14/2015 Constitutional No malaise 08/14/2015 Eyes No blindness 08/14/2015 Eyes No vision change 08/14/2015 Ears/Nose/Throat/Neck No dental pain Ears/Nose/Throat/Neck No dizziness 2015 Ears/Nose/Throat/Neck No dysphagia 2015 Ears/Nose/Throat/Neck No headache 2015 Ears/Nose/Throat/Neck No hearing loss Ears/Nose/Throat/Neck No nasal allergies 08/14/2015 Ears/Nose/Throat/Neck No sore throat Ears/Nose/Throat/Neck No postnasal drip 08/14/2015 Ears/Nose/Throat/Neck No sinus congestion 08/14/2015 Cardiovascular No chest pain/pressure Cardiovascular No dyspnea 08/14/2015 Cardiovascular No edema 08/14/2015 Cardiovascular No exercise intolerance Cardiovascular No fatigue 08/14/2015 Cardiovascular No near-syncope/dizziness 08/14/2015 Respiratory No chest tightness 2015 Respiratory No cough 08/14/2015 Respiratory No dyspnea 08/14/2015 Respiratory No pedal edema 08/14/2015 Gastrointestinal No abdominal pain 2015 Gastrointestinal No constipation 2015 Gastrointestinal No diarrhea 08/14/2015 Gastrointestinal No gastroesophageal reflux 08/14/2015 Gastrointestinal No nausea 08/14/2015 Gastrointestinal No vomiting 08/14/2015 Genitourinary/Nephrology No dysuria 08/14 Genitourinary/Nephrology No nocturia Genitourinary/Nephrology No urinary incontinence 08/14/2015 Musculoskeletal No stiffness 08/14/2015 Musculoskeletal No swelling 08/14/2015 Musculoskeletal No muscle weakness 2015 Musculoskeletal No myalgias 08/14/2015 Dermatologic No rash 08/14/2015 Dermatologic No sores 08/14/2015 Dermatologic No scar 08/14/2015 Neurologic No dizziness 08/14/2015 Neurologic No headache 08/14/2015 Neurologic No neck pain 08/14/2015 Neurologic No syncope 08/14/2015 Psychiatric No anxiety 08/14/2015 Psychiatric No depression 08/14/2015 Constitutional No recent illness 2014 Constitutional No chills 06/26/2015 Constitutional fatigue 06/26/2015 Constitutional No fever 06/26/2015 Constitutional No insomnia 06/26/2015 Constitutional No malaise 06/26/2015 Eyes No blindness 06/26/2015 Eyes No vision change 06/26/2015 Ears/Nose/Throat/Neck No dental pain Ears/Nose/Throat/Neck No dizziness 2014 Ears/Nose/Throat/Neck No dysphagia 2014 Ears/Nose/Throat/Neck No headache 2014 Ears/Nose/Throat/Neck No hearing loss Ears/Nose/Throat/Neck No nasal allergies 06/26/2015 Ears/Nose/Throat/Neck No sore throat Ears/Nose/Throat/Neck No postnasal drip 06/26/2015 Ears/Nose/Throat/Neck No sinus congestion 06/26/2015 Cardiovascular No chest pain/pressure Cardiovascular No dyspnea 06/26/2015 Cardiovascular No edema 06/26/2015 Cardiovascular No exercise intolerance Cardiovascular No fatigue 06/26/2015 Cardiovascular No near-syncope/dizziness 06/26/2015 Respiratory No chest tightness 2014 Respiratory No cough 06/26/2015 Respiratory No dyspnea 06/26/2015 Respiratory No pedal edema 06/26/2015 Gastrointestinal No abdominal pain 2014 Gastrointestinal No constipation 2014 Gastrointestinal No diarrhea 06/26/2015 Gastrointestinal No gastroesophageal reflux 06/26/2015 Gastrointestinal No nausea 06/26/2015 Gastrointestinal No vomiting 06/26/2015 Genitourinary/Nephrology No dysuria 06/26 Genitourinary/Nephrology No nocturia Genitourinary/Nephrology No urinary incontinence 06/26/2015 Musculoskeletal stiffness 06/26/2015 Musculoskeletal No swelling 06/26/2015 Musculoskeletal muscle weakness 2014 Musculoskeletal No myalgias 06/26/2015 Dermatologic No rash 06/26/2015 Dermatologic No sores 06/26/2015 Dermatologic No scar 06/26/2015 Neurologic No dizziness 06/26/2015 Neurologic No headache 06/26/2015 Neurologic No neck pain 06/26/2015 Neurologic No syncope 06/26/2015 Psychiatric No anxiety 06/26/2015 Psychiatric No depression 06/26/2015 Musculoskeletal arthralgia(s) 06/26/2015 Musculoskeletal back pain 06/26/2015 Constitutional weight gain 06/26/2015 Constitutional obesity 06/26/2015 Physical Exam Exam Name System Name Item Name Status Result Effective Dates Notes Full Exam - General 1994 Constitutional general appearance Overall: well nourished 04/28/2017 None Full Exam - General 1994 Constitutional general appearance Overall: well developed 04/28/2017 None Full Exam - General 1994 Constitutional general appearance Overall: in no acute distress 04/28/2017 None Full Exam - General 1994 Ears/Nose/Throat otoscopic exam Tympanic membrane: air- fluid level 04/28/2017 None Full Exam - General 1994 Respiratory auscultation Overall: breath sounds clear bilaterally 04/28/2017 None Full Exam - General 1994 Respiratory respiratory effort/rhythm Overall: normal rate 04/28/2017 None Full Exam - General 1994 Respiratory respiratory effort/rhythm Overall: no retractions 04/28/2017 None Full Exam - General 1994 Cardiovascular auscultation of heart Overall: regular rate 04/28/2017 None Full Exam - General 1994 Cardiovascular auscultation of heart Overall: normal heart sounds 04/28/2017 None Full Exam - General 1994 Cardiovascular auscultation of heart Overall: no murmurs 04/28/2017 None Full Exam - General 1994 Cardiovascular extremities Overall: no clubbing 04/28/2017 None Full Exam - General 1994 Psychiatric orientation/consciousness Overall: oriented to person, place and time 04/28/2017 None Full Exam - General 1994 Psychiatric mood and affect Mood: happy 04/28/2017 None Full Exam - General 1994 Psychiatric mood and affect Overall: normal mood and affect 04/28/2017 None Full Exam - General 1994 Lymphatic neck nodes Overall: anterior cervical chain benign 04/28/2017 None Full Exam - General 1994 Lymphatic neck nodes Overall: posterior cervical chain benign 04/28/2017 None Full Exam - General 1994 Eyes pupils and irises Overall: pupils equal, round, reactive to light and accomodation 04/28/2017 nystagmus to right and left Full Exam - General 1994 Constitutional general appearance Development: well developed 04/22/2017 None Full Exam - General 1994 Constitutional general appearance Development: appears stated age 0904/22/2017 None Full Exam - General 1994 Constitutional general appearance Hygiene/Attention to Grooming: good hygiene 04/22/2017 None Full Exam - General 1994 Eyes conjunctiva /eyelids Overall: conjunctiva clear 04/22/2017 None Full Exam - General 1994 Eyes conjunctiva /eyelids Overall: cornea clear 04/22/2017 None Full Exam - General 1994 Eyes conjunctiva /eyelids Overall: eyelids normal 04/22/2017 None Full Exam - General 1994 Eyes pupils and irises Overall: pupils equal, round, reactive to light and accomodation 04/22/2017 None Full Exam - General 1994 Ears/Nose/Throat otoscopic exam Overall: external auditory canals clear 04/22/2017 None Full Exam - General 1994 Ears/Nose/Throat otoscopic exam Overall: tympanic membranes clear 04/22/2017 None Full Exam - General 1994 Ears/Nose/Throat lips/teeth/gingiva Overall: benign lips 04/22/2017 None Full Exam - General 1994 Ears/Nose/Throat lips/teeth/gingiva Overall: normal dentition 04/22/2017 None Full Exam - General 1995 Ears/Nose/Throat oral cavity/pharynx/larynx Overall: oral mucosa clear 04/22/2017 None Full Exam - General 1994 Ears/Nose/Throat oral cavity/pharynx/larynx Overall: oropharyngeal mucosa clear 04/22/2017 None Full Exam - General 1994 Ears/Nose/Throat oral cavity/pharynx/larynx Overall: hypopharynx benign 04/22/2017 None Full Exam - General 1994 Ears/Nose/Throat oral cavity/pharynx/larynx Overall: no masses 04/22/2017 None Full Exam - General 1994 Respiratory auscultation Overall: breath sounds clear bilaterally 04/22/2017 None Full Exam - General 1994 Respiratory respiratory effort/rhythm Overall: no retractions 04/22/2017 None Full Exam - General 1994 Respiratory respiratory effort/rhythm Overall: normal rate 04/22/2017 None Full Exam - General 1994 Cardiovascular extremities Overall: no clubbing 04/22/2017 None Full Exam - General 1994 Cardiovascular auscultation of heart Overall: regular rate 04/22/2017 None Full Exam - General 1994 Cardiovascular auscultation of heart Overall: normal heart sounds 04/22/2017 None Full Exam - General 1994 Abdomen abdominal exam Overall: no tenderness 04/22/2017 None Full Exam - General 1994 Abdomen abdominal exam Overall: normal bowel sounds 04/22/2017 None Full Exam - General 1994 Lymphatic neck nodes Overall: anterior cervical chain benign 04/22/2017 None Full Exam - General 1994 Lymphatic neck nodes Overall: posterior cervical chain benign 04/22/2017 None Full Exam - General 1994 Musculoskeletal spine, ribs and pelvis Overall: spine benign 04/22/2017 None Full Exam - General 1994 Musculoskeletal spine, ribs and pelvis Overall: sacroiliac joint benign 04/22/2017 None Full Exam - General 1994 Musculoskeletal spine, ribs and pelvis Overall: good posture 04/22/2017 None Full Exam - General 1994 Musculoskeletal head and neck Overall: head atraumatic 04/22/2017 None Full Exam - General 1994 Musculoskeletal head and neck Overall: cervical spine benign 04/22/2017 None Full Exam - General 1994 Integument inspection of skin Overall: few scattered moles, no gross abnormalities 04/22/2017 None Full Exam - General 1994 Neurologic deep tendon reflexes Overall: deep tendon reflexes intact 04/22/2017 None Full Exam - General 1994 Neurologic cranial nerves Overall: crainial nerves 2 - 12 grossly intact 04/22/2017 None Full Exam - General 1994 Psychiatric orientation/consciousness Overall: oriented to person, place and time 04/22/2017 None Full Exam - General 1994 Psychiatric mood and affect Overall: normal mood and affect 04/22/2017 None Full Exam - General 1994 Constitutional general appearance Development: well developed 01/15/2016 None Full Exam - General 1994 Constitutional general appearance Development: appears stated age 0601/15/2016 None Full Exam - General 1994 Constitutional general appearance Hygiene/Attention to Grooming: good hygiene 01/15/2016 None Full Exam - General 1994 Eyes conjunctiva /eyelids Overall: conjunctiva clear 01/15/2016 None Full Exam - General 1994 Eyes conjunctiva /eyelids Overall: cornea clear 01/15/2016 None Full Exam - General 1994 Eyes conjunctiva /eyelids Overall: eyelids normal 01/15/2016 None Full Exam - General 1994 Eyes pupils and irises Overall: pupils equal, round, reactive to light and accomodation 01/15/2016 None Full Exam - General 1994 Ears/Nose/Throat otoscopic exam Overall: external auditory canals clear 01/15/2016 None Full Exam - General 1994 Ears/Nose/Throat otoscopic exam Overall: tympanic membranes clear 01/15/2016 None Full Exam - General 1994 Ears/Nose/Throat lips/teeth/gingiva Overall: benign lips 01/15/2016 None Full Exam - General 1994 Ears/Nose/Throat lips/teeth/gingiva Overall: normal dentition 01/15/2016 None Full Exam - General 1994 Ears/Nose/Throat oral cavity/pharynx/larynx Overall: oral mucosa clear 01/15/2016 None Full Exam - General 1994 Ears/Nose/Throat oral cavity/pharynx/larynx Overall: oropharyngeal mucosa clear 01/15/2016 None Full Exam - General 1994 Ears/Nose/Throat oral cavity/pharynx/larynx Overall: hypopharynx benign 01/15/2016 None Full Exam - General 1994 Ears/Nose/Throat oral cavity/pharynx/larynx Overall: no masses 01/15/2016 None Full Exam - General 1994 Respiratory auscultation Overall: breath sounds clear bilaterally 01/15/2016 None Full Exam - General 1994 Respiratory respiratory effort/rhythm Overall: no retractions 01/15/2016 None Full Exam - General 1994 Respiratory respiratory effort/rhythm Overall: normal rate 01/15/2016 None Full Exam - General 1994 Cardiovascular extremities Overall: no clubbing 01/15/2016 None Full Exam - General 1994 Cardiovascular auscultation of heart Overall: regular rate 01/15/2016 None Full Exam - General 1994 Cardiovascular auscultation of heart Overall: normal heart sounds 01/15/2016 None Full Exam - General 1994 Abdomen abdominal exam Overall: no tenderness 01/15/2016 None Full Exam - General 1994 Abdomen abdominal exam Overall: normal bowel sounds 01/15/2016 None Full Exam - General 1994 Lymphatic neck nodes Overall: anterior cervical chain benign 01/15/2016 None Full Exam - General 1994 Lymphatic neck nodes Overall: posterior cervical chain benign 01/15/2016 None Full Exam - General 1994 Musculoskeletal spine, ribs and pelvis Overall: spine benign 01/15/2016 None Full Exam - General 1994 Musculoskeletal spine, ribs and pelvis Overall: sacroiliac joint benign 01/15/2016 None Full Exam - General 1994 Musculoskeletal spine, ribs and pelvis Overall: good posture 01/15/2016 None Full Exam - General 1994 Musculoskeletal head and neck Overall: head atraumatic 01/15/2016 None Full Exam - General 1994 Musculoskeletal head and neck Overall: cervical spine benign 01/15/2016 None Full Exam - General 1994 Neurologic deep tendon reflexes Overall: deep tendon reflexes intact 01/15/2016 None Full Exam - General 1994 Neurologic cranial nerves Overall: crainial nerves 2 - 12 grossly intact 01/15/2016 None Full Exam - General 1994 Psychiatric orientation/consciousness Overall: oriented to person, place and time 01/15/2016 None Full Exam - General 1994 Psychiatric mood and affect Overall: normal mood and affect 01/15/2016 None Full Exam - General 1994 Integument inspection of skin Pigmentation: hyperpigmentation 01/15/2016 on multiple sites across back and shoulders Full Exam - General 1994 Constitutional general appearance Development: well developed 08/14/2015 None Full Exam - General 1994 Constitutional general appearance Development: appears stated age 0108/14/2015 None Full Exam - General 1994 Constitutional general appearance Hygiene/Attention to Grooming: good hygiene 08/14/2015 None Full Exam - General 1994 Eyes conjunctiva /eyelids Overall: conjunctiva clear 08/14/2015 None Full Exam - General 1994 Eyes conjunctiva /eyelids Overall: cornea clear 08/14/2015 None Full Exam - General 1994 Eyes conjunctiva /eyelids Overall: eyelids normal 08/14/2015 None Full Exam - General 1994 Eyes pupils and irises Overall: pupils equal, round, reactive to light and accomodation 08/14/2015 None Full Exam - General 1994 Ears/Nose/Throat otoscopic exam Overall: external auditory canals clear 08/14/2015 None Full Exam - General 1994 Ears/Nose/Throat otoscopic exam Overall: tympanic membranes clear 08/14/2015 None Full Exam - General 1994 Ears/Nose/Throat lips/teeth/gingiva Overall: benign lips 08/14/2015 None Full Exam - General 1994 Ears/Nose/Throat lips/teeth/gingiva Overall: normal dentition 08/14/2015 None Full Exam - General 1994 Ears/Nose/Throat oral cavity/pharynx/larynx Overall: oral mucosa clear 08/14/2015 None Full Exam - General 1994 Ears/Nose/Throat oral cavity/pharynx/larynx Overall: oropharyngeal mucosa clear 08/14/2015 None Full Exam - General 1994 Ears/Nose/Throat oral cavity/pharynx/larynx Overall: hypopharynx benign 08/14/2015 None Full Exam - General 1994 Ears/Nose/Throat oral cavity/pharynx/larynx Overall: no masses 08/14/2015 None Full Exam - General 1994 Respiratory auscultation Overall: breath sounds clear bilaterally 08/14/2015 None Full Exam - General 1994 Respiratory respiratory effort/rhythm Overall: no retractions 08/14/2015 None Full Exam - General 1994 Respiratory respiratory effort/rhythm Overall: normal rate 08/14/2015 None Full Exam - General 1994 Cardiovascular extremities Overall: no clubbing 08/14/2015 None Full Exam - General 1994 Cardiovascular auscultation of heart Overall: regular rate 08/14/2015 None Full Exam - General 1994 Cardiovascular auscultation of heart Overall: normal heart sounds 08/14/2015 None Full Exam - General 1994 Abdomen abdominal exam Overall: no tenderness 08/14/2015 None Full Exam - General 1994 Abdomen abdominal exam Overall: normal bowel sounds 08/14/2015 None Full Exam - General 1994 Neurologic deep tendon reflexes Overall: deep tendon reflexes intact 08/14/2015 None Full Exam - General 1994 Neurologic cranial nerves Overall: crainial nerves 2 - 12 grossly intact 08/14/2015 None Full Exam - General 1994 Psychiatric orientation/consciousness Overall: oriented to person, place and time 08/14/2015 None Full Exam - General 1994 Psychiatric mood and affect Overall: normal mood and affect 08/14/2015 None Full Exam - General 1994 Constitutional general appearance Development: well developed 06/26/2015 None Full Exam - General 1994 Constitutional general appearance Development: appears stated age 1106/26/2015 None Full Exam - General 1994 Constitutional general appearance Hygiene/Attention to Grooming: good hygiene 06/26/2015 None Full Exam - General 1994 Eyes conjunctiva /eyelids Overall: conjunctiva clear 06/26/2015 None Full Exam - General 1994 Eyes conjunctiva /eyelids Overall: cornea clear 06/26/2015 None Full Exam - General 1994 Eyes conjunctiva /eyelids Overall: eyelids normal 06/26/2015 None Full Exam - General 1994 Eyes pupils and irises Overall: pupils equal, round, reactive to light and accomodation 06/26/2015 None Full Exam - General 1994 Ears/Nose/Throat otoscopic exam Overall: external auditory canals clear 06/26/2015 None Full Exam - General 1994 Ears/Nose/Throat otoscopic exam Overall: tympanic membranes clear 06/26/2015 None Full Exam - General 1994 Ears/Nose/Throat lips/teeth/gingiva Overall: benign lips 06/26/2015 None Full Exam - General 1994 Ears/Nose/Throat lips/teeth/gingiva Overall: normal dentition 06/26/2015 None Full Exam - General 1994 Ears/Nose/Throat oral cavity/pharynx/larynx Overall: oral mucosa clear 06/26/2015 None Full Exam - General 1994 Ears/Nose/Throat oral cavity/pharynx/larynx Overall: oropharyngeal mucosa clear 06/26/2015 None Full Exam - General 1994 Ears/Nose/Throat oral cavity/pharynx/larynx Overall: hypopharynx benign 06/26/2015 None Full Exam - General 1994 Ears/Nose/Throat oral cavity/pharynx/larynx Overall: no masses 06/26/2015 None Full Exam - General 1994 Respiratory auscultation Overall: breath sounds clear bilaterally 06/26/2015 None Full Exam - General 1994 Respiratory respiratory effort/rhythm Overall: no retractions 06/26/2015 None Full Exam - General 1994 Respiratory respiratory effort/rhythm Overall: normal rate 06/26/2015 None Full Exam - General 1994 Cardiovascular extremities Overall: no clubbing 06/26/2015 None Full Exam - General 1994 Cardiovascular auscultation of heart Overall: regular rate 06/26/2015 None Full Exam - General 1994 Cardiovascular auscultation of heart Overall: normal heart sounds 06/26/2015 None Full Exam - General 1994 Abdomen abdominal exam Overall: no tenderness 06/26/2015 None Full Exam - General 1994 Abdomen abdominal exam Overall: normal bowel sounds 06/26/2015 None Full Exam - General 1994 Lymphatic neck nodes Overall: anterior cervical chain benign 06/26/2015 None Full Exam - General 1994 Lymphatic neck nodes Overall: posterior cervical chain benign 06/26/2015 None Full Exam - General 1994 Musculoskeletal spine, ribs and pelvis Overall: spine benign 06/26/2015 None Full Exam - General 1994 Musculoskeletal spine, ribs and pelvis Overall: sacroiliac joint benign 06/26/2015 None Full Exam - General 1994 Musculoskeletal spine, ribs and pelvis Overall: good posture 06/26/2015 None Full Exam - General 1994 Musculoskeletal head and neck Overall: head atraumatic 06/26/2015 None Full Exam - General 1994 Musculoskeletal head and neck Overall: cervical spine benign 06/26/2015 None Full Exam - General 1994 Integument inspection of skin Overall: few scattered moles, no gross abnormalities 06/26/2015 None Full Exam - General 1994 Neurologic deep tendon reflexes Overall: deep tendon reflexes intact 06/26/2015 None Full Exam - General 1994 Neurologic cranial nerves Overall: crainial nerves 2 - 12 grossly intact 06/26/2015 None Full Exam - General 1994 Psychiatric orientation/consciousness Overall: oriented to person, place and time 06/26/2015 None Full Exam - General 1994 Psychiatric mood and affect Overall: normal mood and affect 06/26/2015 None Procedures Procedure Codes Date URINALYSIS NONAUTO W/O SCOPE CPT-4: 55196 08/05/2017 THER/PROPH/DIAG INJ SC/IM CPT-4: 36455 04/28/2017 TRIAMCINOLONE ACET INJ NOS CPT-4: J3301 04/28/2017 Vital Signs Date Vital 04/28/2017 Blood Pressure 1: 126/84 Code : 8480-6 Heart Rate 1: 61 bpm Height: 5'7" SpO2: 98% 04/22/2017 Blood Pressure 1: 134/78 Code : 8480-6 BMI: 30.4 Code : 74576-9 Heart Rate 1 : 66 bpm Height: 5'7" SpO2: 98% Weight: 194 lbs 01/15/2016 Blood Pressure 1: 132/74 Code : 8480-6 BMI: 28.5 Code : 72767-1 Heart Rate 1 : 70 bpm Height: 5'7" SpO2: 97% Weight: 182 lbs 08/14/2015 Blood Pressure 1: 126/70 Code : 8480-6 BMI: 29.1 Code : 77310-3 Heart Rate 1 : 82 bpm Height: 5'7" SpO2: 96% Weight: 186 lbs 06/26/2015 Blood Pressure 1: 148/86 Code : 8480-6 Blood Pressure 1: 130/76 Code: 8480-6 BMI: 31.3 Code: 83250-3 Heart Rate 1: 71 bpm Height: 5'7" SpO2: 98% Weight: 200 lbs Functional Status No Functional Status data History of Present Illness Symptom Name Status Result Effective Date Notes dizziness Quality acute 04/28/2017 None dizziness Quality feelings of unsteadiness 04/28/2017 None dizziness Quality imbalance 04/28/2017 None dizziness Onset and Resolution sudden in onset 04/28/2017 None dizziness Onset of Symptom 5 days ago 04/28/2017 None dizziness Onset and Resolution ongoing 04/28/2017 None dizziness Frequency of Episodes daily 04/28/2017 None dizziness Triggers no known associated factors 04/28/2017 None dizziness Pertinent Findings Denies confusion 04/28/2017 None dizziness Pertinent Findings imbalance 04/28/2017 None dizziness Pertinent Findings lightheadedness 04/28/2017 None shoulder pain Location on the left shoulder 04/22/2017 None shoulder pain Quality intermittent 04/22/2017 None shoulder pain Onset and Resolution ongoing 04/22/2017 None shoulder pain Onset and Resolution sudden in onset 04/22/2017 None shoulder pain Limitation on Activities lacks active range of motion 04/22/2017 None shoulder pain Frequency of Episodes daily 04/22/2017 None shoulder pain Mechanism of injury fall onto the shoulder 04/22/2017 None well woman exam (65+ years) Lifestyle regular seatbelt use 04/22/2017 None well woman exam (65+ years) Lifestyle abnormal sleep patterns 04/22/2017 due to left shoulder pain well woman exam (65+ years) Lifestyle normal amount of stress 04/22/2017 None well woman exam (65+ years) Nutrition and Exercise overweight 04/22/2017 None well woman exam (65+ years) Nutrition and Exercise balanced nutrition 04/22/2017 None well woman exam (65+ years) Nutrition and Exercise no exercise 04/22/2017 since her left shoulder injury shoulder pain Onset of Symptom 5 months ago 04/22/2017 None midback pain Location in the midline of in the middle back area 01/15/2016 None midback pain Quality chronic 01/15/2016 None midback pain Quality worsening 01/15/2016 None midback pain Limitation on Activities moderately limits activities 01/15/2016 None midback pain Length of Episodes _ years 01/15/2016 None midback pain Triggers bending 01/15/2016 None midback pain Pertinent Findings female 01/15/2016 None lower leg pain Location on the left 01/15/2016 None lower leg pain Location on the right 01/15/2016 Worse on right lower leg pain Quality throbbing 01/15/2016 None lower leg pain Quality chronic 01/15/2016 None lower leg pain Onset of Symptom _ years ago 01/15/2016 Over the last year lower leg pain Frequency of Episodes increasing 01/15/2016 None lower leg pain Length of Episodes _ weeks 01/15/2016 Last 3 weeks has been increased lower leg pain Limitation on Activities moderately limits activities 01/15/2016 None lower leg pain Severity moderate 01/15/2016 None lower leg pain Alleviating Factors rest 01/15/2016 None lower leg pain Exacerbating Factors exercise 01/15/2016 None lower leg pain Pertinent Findings pain with movement 01/15/2016 None midback pain Onset and Resolution ongoing 01/15/2016 None lower leg pain Onset and Resolution ongoing 01/15/2016 None mole check Location-Major on the upper body 01/15/2016 None mole check Color brown 01/15/2016 None mole check Number of Moles Too many to count 01/15/2016 None mole check Changing Moles changing 01/15/2016 None midback pain Location in the midline of in the middle back area 08/14/2015 None midback pain Quality chronic 08/14/2015 None midback pain Quality worsening 08/14/2015 None midback pain Limitation on Activities moderately limits activities 08/14/2015 None midback pain Length of Episodes _ years 08/14/2015 None midback pain Triggers bending 08/14/2015 None midback pain Pertinent Findings female 08/14/2015 None lower leg pain Location on the left 08/14/2015 None lower leg pain Location on the right 08/14/2015 Worse on right lower leg pain Quality throbbing 08/14/2015 None lower leg pain Quality chronic 08/14/2015 None lower leg pain Onset of Symptom _ years ago 08/14/2015 Over the last year lower leg pain Frequency of Episodes increasing 08/14/2015 None lower leg pain Length of Episodes _ weeks 08/14/2015 Last 3 weeks has been increased lower leg pain Limitation on Activities moderately limits activities 08/14/2015 None lower leg pain Severity moderate 08/14/2015 None lower leg pain Alleviating Factors rest 08/14/2015 None lower leg pain Exacerbating Factors exercise 08/14/2015 None lower leg pain Pertinent Findings pain with movement 08/14/2015 None sore throat Location on both sides 08/14/2015 None sore throat Quality dull 08/14/2015 None sore throat Onset and Resolution sudden in onset 08/14/2015 None sore throat Onset of Symptom 4 days ago 08/14/2015 None sore throat Limitation on Activities does not limit oral intake 08/14/2015 None sore throat Frequency of Episodes daily 08/14/2015 None sore throat Pertinent Findings cough 08/14/2015 None sinus congestion Onset and Resolution sudden in onset 08/14/2015 None sinus congestion Onset of Symptom 4 days ago 08/14/2015 None midback pain Length of Episodes _ years 06/26/2015 None midback pain Location in the midline of in the middle back area 06/26/2015 None midback pain Quality chronic 06/26/2015 None midback pain Quality worsening 06/26/2015 None midback pain Limitation on Activities moderately limits activities 06/26/2015 None midback pain Pertinent Findings female 06/26/2015 None midback pain Triggers bending 06/26/2015 None lower leg pain Location on the left 06/26/2015 None lower leg pain Location on the right 06/26/2015 Worse on right lower leg pain Quality chronic 06/26/2015 None lower leg pain Quality throbbing 06/26/2015 None lower leg pain Length of Episodes _ weeks 06/26/2015 Last 3 weeks has been increased lower leg pain Limitation on Activities moderately limits activities 06/26/2015 None lower leg pain Severity moderate 06/26/2015 None lower leg pain Frequency of Episodes increasing 06/26/2015 None lower leg pain Onset of Symptom _ years ago 06/26/2015 Over the last year lower leg pain Alleviating Factors rest 06/26/2015 None lower leg pain Pertinent Findings pain with movement 06/26/2015 None lower leg pain Exacerbating Factors exercise 06/26/2015 None Advance Directives No Advance Directive data Encounters Encounter Performer Location Codes Date [id number] EST. PATIENT, LEVEL III Diagnosis: Benign paroxysmal vertigo, bilateral[ICD10: H81.13] Stefanie Presley MD, [facility] CPT-4: 29366 04/28/2017 [id number]) [id number] EST. PATIENT, LEVEL IV Diagnosis: Muscle weakness (generalized)[ICD10: M62.81] Diagnosis: Displaced fracture of greater tuberosity of left humerus, subsequent encounter for fracture with delayed healing[ICD10: S42.252G] Diagnosis: Pain in left shoulder[ICD10: M25.512] Diagnosis: Pain in right hip[ICD10: M25.551] Diagnosis: Vitamin D deficiency, unspecified[ICD10: E55.9] Stefanie Presley MD, [facility] CPT-4: 76926 04/22/2017 ([id number]) 72211 EST. PATIENT, LEVEL III Diagnosis: Vitamin D deficiency, unspecified[ICD10: E55.9] Diagnosis: Other seborrheic keratosis[ICD10: L82.1] Stefanie Presley MD, [facility] CPT-4: 45578 01/15/2016 [id number]) [id number] EST. PATIENT, LEVEL III Diagnosis: Acute maxillary sinusitis, unspecified[ICD10: J01.00] Diagnosis: Obesity, unspecified[ICD10: E66.9] Stefanie Presley MD, [facility] CPT-4: 10233 08/14/2015 ([id number]) OFFICE/OUTPATIENT VISIT NEW Diagnosis: Personal history of malignant neoplasm of pancreas[ICD10: Z85.07] Diagnosis: Obesity, unspecified[ICD10: E66.9] Diagnosis: Abnormal results of thyroid function studies[ICD10: R94.6] Diagnosis: Vitamin D deficiency, unspecified[ICD10: E55.9] Diagnosis: Muscle weakness (generalized)[ICD10: M62.81] Diagnosis: Dorsalgia, unspecified[ICD10: M54.9] Stefanie Presley MD, [facility] CPT-4: 03470 06/26/2015 Plan of Care Planned Activity Notes Codes Status Date Appointment: Lab Draw 08/05/2017 Patient Education: Patient Medication Summary Completed 08/05/2017 Care Plan: Urine Culture Approved 08/05/2017 Visit Plan: BPPV - Benign Paroxysmal Positional Vertigo - discussed diagnosis with the patient, offered the pt the appropriate additional information in hand-out. Pt instructed in home exercises to help alleviate and prevent future recurrent episodes of vertigo. Pt informed that if symptoms worsen, call the office for further instructions/medication interventions. Kenalog shot today 04/28/2017 Appointment: Stefanie Presley WPtel: [address] [place], [place] [phone] (15 min) Moderate 04/28/2017 Patient Education: Patient Medication Summary Completed 04/28/2017 Visit Plan: Vitamin D deficiency - recommended patient to have a Vitamin D check - and a Dexa scan needs to be scheduled as well. Overweight/obesity - rx for belviq today - belviq xr 20mg daily ordered. Left greater tuberosity fracture - healing slowly - recommended continued treatment per Dr. Arellano - if patient needs to have further treatment, he is considering surgical fixation of the rotator cuff tear. 04/22/2017 Appointment: Stefanie Presley WPtel: [address] [place], [place] [phone] (15 min) Moderate 04/22/2017 Patient Education: Patient Medication Summary Completed 04/22/2017 Patient Education: Obesity Completed 04/22/2017 Appointment: Stefanie Presley WPtel: [address] [place], [place] [phone] (15 min) Moderate 04/07/2017 Visit Plan: Vitamin D deficiency - RX for vitamin D supplementation. Referred pt to Dr. Wheatley for eval of lesions on her back. 01/15/2016 Patient Education: Patient Medication Summary Completed 01/15/2016 Appointment: Stefanie Presley WPtel: [address] [place], [place] [phone] (15 min) Moderate 12/12/2015 Visit Plan: Sinusitis - Pt has acute infection - pain in face, maxillary region, Pt informed to use decongestant, RX given to patient, sinus rinses also recommended. Call if symptoms do not show improvement. Obesity - chronic issue with this patient. The pt has been counseled about diet changes, calorie restriction, and need to exercise. Pt will RTC in one month for weight check. 08/14/2015 Appointment: Stefanie Presley WPtel: [address] [place], [place] [phone] (15 min) Moderate 08/14/2015 Patient Education: Patient Medication Summary Completed 08/14/2015 Referral: External, Ordering Provider Referral Completed 06/28/2015 Visit Plan: Hx of pancreatic tumor - monitor labs. Morbid Obesity - RX for belviq 10mg bid - pt to start on this medication and RTC 2 months for follow up appt. Low back pain, leg weakness - recommended physical therapy for legs and back. hx of vitamin d deficiency per patient report. - check vitamin d level. hx of abnormal thyroid function - check tsh, free t4 06/26/2015 Appointment: Stefanie Presley WPtel: [address] [place], [place] [phone] [place] New Patient 06/26/2015 Patient Education: Patient Medication Summary Completed 06/26/2015 Care Plan: COMPLETE CBC AUTOMATED LOINC : 73838-7 Ordered 06/26/2015 Care Plan: Referral Order SNOMED-CT : [id number] Ordered 06/26/2015 Appointment: Stefanie Presley WPtel: [address] [place], [place] [phone] [place] New Patient 05/22/2015 Appointment: Stefanie Presley WPtel: [address] [place], [place] [phone] [place] New Patient 03/27/2015 Referral: External, Ordering Provider Referral Appointment Requested Instructions Comment . Vitamin D deficiency - recommended patient to have a Vitamin D check - and a Dexa scan needs to be scheduled as well. Overweight/obesity - rx for belviq today - belviq xr 20mg daily ordered. Left greater tuberosity fracture - healing slowly - recommended continued treatment per Dr. Arellano - if patient needs to have further treatment, he is considering surgical fixation of the rotator cuff tear. . Sinusitis - Pt has acute infection - pain in face, maxillary region, Pt informed to use decongestant, RX given to patient, sinus rinses also recommended. Call if symptoms do not show improvement. Obesity - chronic issue with this patient. The pt has been counseled about diet changes, calorie restriction, and need to exercise. Pt will RTC in one month for weight check. Julieta Wheatley - [facility] . Vitamin D deficiency - RX for vitamin D supplementation. Referred pt to Dr. Wheatley for eval of lesions on her back. . Hx of pancreatic tumor - monitor labs. Morbid Obesity - RX for belviq 10mg bid - pt to start on this medication and RTC 2 months for follow up appt. Low back pain, leg weakness - recommended physical therapy for legs and back. hx of vitamin d deficiency per patient report. - check vitamin d level. hx of abnormal thyroid function - check tsh, free t4 BPPV - Benign Paroxysmal Positional Vertigo - discussed diagnosis with the patient, offered the pt the appropriate additional information in hand-out. Pt instructed in home exercises to help alleviate and prevent future recurrent episodes of vertigo. Pt informed that if symptoms worsen, call the office for further instructions/medication interventions. . BPPV - Benign Paroxysmal Positional Vertigo - discussed diagnosis with the patient, offered the pt the appropriate additional information in hand-out. Pt instructed in home exercises to help alleviate and prevent future recurrent episodes of vertigo. Pt informed that if symptoms worsen, call the office for further instructions/medication interventions. Vickie shot today
--- OUTSIDE RECORDS SUMMARY | 2017-11-21 06:06 | XMS REPORT | Continuity of Care Document ---
Author Author [facility] Organization [facility] Address Unknown Phone Unavailable Allergies Active Description Code Type Severity Reaction Onset Reported/Identified Relationship to Patient Clinical Status Yes benzocaine [id number] Drug Allergy Unknown N/A 02/01/2011 Yes benzocaine [id number] Drug Allergy Mild RASH 11/17/2017 Medications There is no data. Problems Date Dx Coded Attending Type Code Diagnosis Diagnosed By CONCETTA GONZALEZ DO Ot S42.252D DISP FX OF GREATER TUBEROSITY OF Ronnie GO 02/01/2011 Ot 577.0 02/01/2011 Ot 789.06 02/28/2011 Ot 338.18 02/28/2011 Ot 998.11 08/11/2013 KELLY SANFORD, ROYAL Inman Ot 530.9 ESOPHAGEAL DISORDER NOS 08/11/2013 KELLY SANFORD, ROYAL Inman Ot 535.50 UNSP GASTRITIS GASTRODUODENITIS W/O ME 08/11/2013 KELLY SANFORD, ROYAL Inman Ot 535.60 DUODENITIS, WITHOUT MENTION OF HEMORRHAG 04/27/2015 Ot 715.35 04/27/2015 Ot 625.8 04/27/2015 Ot 719.45 04/27/2015 Ot 724.5 04/27/2015 Ot V76.12 04/27/2015 Ot 787.03 04/27/2015 Ot 789.00 04/27/2015 Ot 577.9 04/27/2015 Ot 577.8 05/03/2015 Ot 287.5 05/03/2015 ZAINAB WOLFE MD Ot 786.50 05/03/2015 VERA DE LA FUENTE MD Ot V76.12 06/28/2015 Ot 287.5 06/28/2015 ZAINAB WOLFE MD Ot 786.50 06/28/2015 VERA DE LA FUENTE MD Ot V76.12 08/23/2015 LEI LAIRD MD Ot M54.9 08/23/2015 LEI LAIRD MD Ot M62.81 08/28/2015 SISI SANFORD, LEI Zhang Ot M54.9 DORSALGIA, UNSPECIFIED 08/28/2015 SISI SANFORD, LEI Zhang Ot M62.81 MUSCLE WEAKNESS (GENERALIZED) 05/16/2016 VIKA SANFORD, JOE Treviño Ot M48.00 SPINAL STENOSIS, SITE UNSPECIFIED 05/16/2016 JOE SANDY MD Ot M48.00 SPINAL STENOSIS, SITE UNSPECIFIED 06/06/2016 JOE SANDY MD Ot M48.00 SPINAL STENOSIS, SITE UNSPECIFIED 06/25/2016 JOE SANDY MD Ot M48.00 SPINAL STENOSIS, SITE UNSPECIFIED 01/15/2017 LISA DOCONCETTA Ot S42.252D DISP FX OF GREATER TUBEROSITY OF L HUMER 01/24/2017 LISA DO, CONCETTA Rodriguez Ot S42.252D DISP FX OF GREATER TUBEROSITY OF L HUMER 02/21/2017 LISA DOCONCETTA Ot S42.252D DISP FX OF GREATER TUBEROSITY OF L HUMER 03/05/2017 Ot 287.5 THROMBOCYTOPENIA NOS 03/05/2017 AIDEN SANFORD, ZAINAB Treviño Ot 786.50 CHEST PAIN NOS 03/05/2017 LEISA SANFORD, VERA Inman Ot V76.12 OTH SCREEN MAMMO-MALIGN NEOPLASM OF MARK 03/05/2017 JOE SANDY MD Ot M48.00 SPINAL STENOSIS, SITE UNSPECIFIED 03/05/2017 LISA CONCETTA GILBERT Ot S42.252D DISP FX OF GREATER TUBEROSITY OF L HUMER 03/10/2017 LISA DOCONCETTA Ot S42.252D DISP FX OF GREATER TUBEROSITY OF L HUMER 04/01/2017 LISA CONCETTA GILBERT Ot M75.102 UNSP ROTATR-CUFF TEAR/RUPTR OF LEFT SHOU 04/01/2017 CONCETTA GONZALEZ DO Ot S40.012A CONTUSION OF LEFT SHOULDER, INITIAL ENCO 04/01/2017 CONCETTA GONZALEZ DO Ot X58.XXXA EXPOSURE TO OTHER SPECIFIED FACTORS, INI 04/01/2017 CONCETTA GONZALEZ DO Ot Y99.8 OTHER EXTERNAL CAUSE STATUS 04/02/2017 CONCETTA GONZALEZ DO Ot S42.252D DISP FX OF GREATER TUBEROSITY OF L HUMER 04/22/2017 LISA CONCETTA GILBERT Ot M75.102 UNSP ROTATR-CUFF TEAR/RUPTR OF LEFT SHOU 04/22/2017 LISA GILBERT, CONCETTA Rodriguez Ot S40.012A CONTUSION OF LEFT SHOULDER, INITIAL ENCO 04/22/2017 LISA GILBERT, CONCETTA Rodriguez Ot X58.XXXA EXPOSURE TO OTHER SPECIFIED FACTORS, INI 04/22/2017 LISA GILBERT, CONCETTA Rodriguez Ot Y99.8 OTHER EXTERNAL CAUSE STATUS 05/01/2017 Ot 287.5 THROMBOCYTOPENIA NOS 05/01/2017 AIDEN SANFORD, ZAINAB Treviño Ot 786.50 CHEST PAIN NOS 05/01/2017 LEISA SANFORD, VERA Inman Ot V76.12 OTH SCREEN MAMMO-MALIGN NEOPLASM OF MARK 05/01/2017 VIKA SANFORD, JOE Treviño Ot M48.00 SPINAL STENOSIS, SITE UNSPECIFIED 05/01/2017 LISA GILBERT, CONCETTA Rodriguez Ot M75.102 UNSP ROTATR-CUFF TEAR/RUPTR OF LEFT SHOU 05/01/2017 LISA GILBERT, CONCETTA Rodriguez Ot S40.012A CONTUSION OF LEFT SHOULDER, INITIAL ENCO 05/01/2017 LISA GILBERT, CONCETTA Rodriguez Ot X58.XXXA EXPOSURE TO OTHER SPECIFIED FACTORS, INI 05/01/2017 LISA GILBERT, CONCETTA Rodriguez Ot Y99.8 OTHER EXTERNAL CAUSE STATUS 05/01/2017 SISI SANFORD, LEI Zhang Ot M89.9 DISORDER OF BONE, UNSPECIFIED 05/01/2017 LEI LAIRD MD Ot Z12.31 ENCNTR SCREEN MAMMOGRAM FOR MALIGNANT NE 05/23/2017 LEI LAIRD MD Ot E55.9 VITAMIN D DEFICIENCY, UNSPECIFIED 05/23/2017 LEI LAIRD MD Ot Z12.31 ENCNTR SCREEN MAMMOGRAM FOR MALIGNANT NE 05/23/2017 LEI LAIRD MD Ot Z13.820 ENCOUNTER FOR SCREENING FOR OSTEOPOROSIS 08/11/2017 ANDERW TAYLOR APRN Ot M16.11 UNILATERAL PRIMARY OSTEOARTHRITIS, RIGHT 08/11/2017 ANDREW TAYLOR APRN Ot Z01.810 ENCOUNTER FOR PREPROCEDURAL CARDIOVASCUL 08/11/2017 ANDREW TAYLOR APRN Ot Z01.811 ENCOUNTER FOR PREPROCEDURAL RESPIRATORY 08/21/2017 ANDREW TAYLOR APRN Ot M16.11 UNILATERAL PRIMARY OSTEOARTHRITIS, RIGHT 08/21/2017 BRANDON, ANDREW M JAVA DEVELOPMENT TEAM LEAD Ot Z01.810 ENCOUNTER FOR PREPROCEDURAL CARDIOVASCUL 08/21/2017 ANDREW TAYLOR JAVA DEVELOPMENT TEAM LEAD Ot Z01.811 ENCOUNTER FOR PREPROCEDURAL RESPIRATORY 09/14/2017 AMY MATTA Final M16.0 Bilateral primary osteoarthritis of hip 09/22/2017 ANDREW TAYLOR JAVA DEVELOPMENT TEAM LEAD Ot M16.11 UNILATERAL PRIMARY OSTEOARTHRITIS, RIGHT 09/22/2017 ANDREW TAYLOR JAVA DEVELOPMENT TEAM LEAD Ot Z01.810 ENCOUNTER FOR PREPROCEDURAL CARDIOVASCUL 09/22/2017 ANDREW TAYLOR JAVA DEVELOPMENT TEAM LEAD Ot Z01.811 ENCOUNTER FOR PREPROCEDURAL RESPIRATORY 11/14/2017 DUANE SANFORD, LEELEE L Ot H25.12 AGE-RELATED NUCLEAR CATARACT, LEFT EYE 11/14/2017 DUANE SANFORD, LEELEE Trujillo Ot Z01.818 ENCOUNTER FOR OTHER PREPROCEDURAL EXAMIN 11/17/2017 DUANE SANFORD, LEELEE L Ot H25.12 AGE-RELATED NUCLEAR CATARACT, LEFT EYE 11/17/2017 LEELEE ZEPEDA MD L Ot Z01.818 ENCOUNTER FOR OTHER PREPROCEDURAL EXAMIN 11/17/2017 DUANE SANFORD, LEELEE L Ot H25.12 AGE-RELATED NUCLEAR CATARACT, LEFT EYE 11/17/2017 DUANE SANFORD, LEELEE L Ot Z01.818 ENCOUNTER FOR OTHER PREPROCEDURAL EXAMIN 11/18/2017 DUANE SANFORD, LEELEE L Ot H25.12 AGE-RELATED NUCLEAR CATARACT, LEFT EYE 11/18/2017 LEELEE ZEPEDA MD Ot Z01.818 ENCOUNTER FOR OTHER PREPROCEDURAL EXAMIN 11/19/2017 Ot 287.5 THROMBOCYTOPENIA NOS 11/19/2017 AIDEN SANFORD, ZAINAB Treviño Ot 786.50 CHEST PAIN NOS 11/19/2017 LEISA SANFORD, VERA Inman Ot V76.12 OTH SCREEN MAMMO-MALIGN NEOPLASM OF MARK 11/19/2017 VIKA SANFORD, JOE Treviño Ot M48.00 SPINAL STENOSIS, SITE UNSPECIFIED 11/19/2017 CONCETTA GONZALEZ DO Ot M75.102 UNSP ROTATR-CUFF TEAR/RUPTR OF LEFT SHOU 11/19/2017 CONCETTA GONZALEZ DO Ot S40.012A CONTUSION OF LEFT SHOULDER, INITIAL ENCO 11/19/2017 CONCETTA GONZALEZ DO Ot X58.XXXA EXPOSURE TO OTHER SPECIFIED FACTORS, INI 11/19/2017 CONCETTA GONZALEZ DO Ot Y99.8 OTHER EXTERNAL CAUSE STATUS 11/19/2017 LEI LAIRD MD Ot E55.9 VITAMIN D DEFICIENCY, UNSPECIFIED 11/19/2017 LEI LAIRD MD Ot Z12.31 ENCNTR SCREEN MAMMOGRAM FOR MALIGNANT NE 11/19/2017 LEI LAIRD MD Ot Z13.820 ENCOUNTER FOR SCREENING FOR OSTEOPOROSIS 11/19/2017 ANDREW TAYLOR APRN Ot M16.11 UNILATERAL PRIMARY OSTEOARTHRITIS, RIGHT 11/19/2017 ANDREW TAYLOR APRN Ot Z01.810 ENCOUNTER FOR PREPROCEDURAL CARDIOVASCUL 11/19/2017 ANDREW TAYLOR APRN Ot Z01.811 ENCOUNTER FOR PREPROCEDURAL RESPIRATORY Procedures Code Description Performed By Performed On [id number] Replacement of Right Hip Joint with Synthetic Substitute, Uncemented, Open Approach KOREYAMY 09/11/2017 Results Test Result Range Type and Screen - 09/11/17 06:45 Blood Type ABO O NRG Blood Type Rh Pos NRG Antibody Screen Neg Neg UA Surveillance - 09/11/17 07:06 COLOR:TYPE:PT:URINE:NOM:AUTO Yellow Yellow CLARITY:TYPE:PT:URINE:NOM:REFRACTOMETRY.AUTOMATED Clear Clear SPECIFIC GRAVITY:RDEN:PT:URINE:QN:TEST STRIP.AUTOMATED 1.005 1.003-1.035 PH:LSCNC:PT:URINE:QN:TEST STRIP.AUTOMATED 7.0 5.0-6.0 LEUKOCYTE ESTERASE:PRTHR:PT:URINE:ORD:TEST STRIP.AUTOMATED Neg Neg NITRITE:PRTHR:PT:URINE:ORD:TEST STRIP.AUTOMATED Neg Neg PROTEIN:PRTHR:PT:URINE:ORD:TEST STRIP.AUTOMATED Neg Neg GLUCOSE:PRTHR:PT:URINE:ORD:TEST STRIP.AUTOMATED Neg Neg KETONES:PRTHR:PT:URINE:ORD:TEST STRIP.AUTOMATED Neg Neg UROBILINOGEN:PRTHR:PT:URINE:ORD:TEST STRIP.AUTOMATED Norm mg/dL Norm BILIRUBIN:PRTHR:PT:URINE:ORD:TEST STRIP.AUTOMATED Neg Neg HEMOGLOBIN:PRTHR:PT:URINE:ORD:TEST STRIP.AUTOMATED Neg Neg CMP - 09/12/17 04:15 SODIUM:SCNC:PT:SER/PLAS:QN: 141 mmol/L 136-145 POTASSIUM:SCNC:PT:SER/PLAS:QN: 3.9 mmol/L 3.5-5.1 CHLORIDE:SCNC:PT:SER/PLAS:QN: 106 mmol/L 98-107 CARBON DIOXIDE:SCNC:PT:SER/PLAS:QN: 28 mmol/L 21-32 ANION GAP 3:SCNC:PT:SER/PLAS:QN: 7 7-16 GLUCOSE:MCNC:PT:SER/PLAS:QN: 125 mg/dL 70-110 UREA NITROGEN:MCNC:PT:SER/PLAS:QN: 12 mg/dL 8-23 CREATININE:MCNC:PT:SER/PLAS:QN: 0.7 mg/dL 0.6-1.0 UREA NITROGEN/CREATININE:MRTO:PT:SER/PLAS:QN: 16.7 10.0- 20.1 CALCIUM:MCNC:PT:SER/PLAS:QN: 8.2 mg/dL 8.6-10.2 ALKALINE PHOSPHATASE:CCNC:PT:SER/PLAS:QN: 63 unit/L 35- 104 BILIRUBIN:MCNC:PT:SER/PLAS:QN: 0.7 mg/dL 0.2-1.0 ALBUMIN:MCNC:PT:SER/PLAS:QN:BCP 2.8 gm/dL 3.4-5.0 PROTEIN:MCNC:PT:SER/PLAS:QN: 4.9 gm/dL 6.4-8.2 GLOBULIN:MCNC:PT:SER:QN:CALCULATED 2.1 gm/dL 2.0-3.5 ALBUMIN/GLOBULIN:MRTO:PT:SER/PLAS:QN: 1.3 0.9-3.6 ALANINE AMINOTRANSFERASE:CCNC:PT:SER/PLAS:QN:WITH P-5'-P 21 unit/L 0-34 ASPARTATE AMINOTRANSFERASE:CCNC:PT:SER/PLAS:QN:WITH P-5'-P 40 unit/ L 0-31 GFR >60 >=60 GFR NonAfrican Saudi Arabian >60 >=60 Encounters ACCT No. Visit Date/Time Discharge Status Pt. Type Provider Facility Loc./Unit Complaint [id number] 11/17/2017 09:00:00 11/17/2017 10:20:00 DIS Outpatient LEELEE ZEPEDA MD [facility] PREOP CATARACT LEFT EYE [id number] 08/05/2017 10:12:00 08/05/2017 23:59:59 CLS Outpatient ANDREW TAYLOR APRN [facility] CARD M16.11 [id number] 05/01/2017 08:47:00 05/01/2017 23:59:59 CLS Outpatient LEI LAIRD MD [facility] RAD SCREENING, VIT D DEFIC. POST MENOPAUSAL [id number] 02/25/2017 10:01:00 04/02/2017 09:34:00 DIS Outpatient CONCETTA GONZALEZ DO [facility] REHAB GREATER TUBEROSITY FX; LT PROXIMAL HUMERUS [id number] 03/07/2017 09:42:00 03/07/2017 23:59:59 CLS Outpatient CONCETTA GONZALEZ DO [facility] RAD LEFT SHOULDER PAIN [id number] 05/15/2016 15:18:00 05/15/2016 23:59:59 CLS Outpatient JOE SANDY MD [facility] RAD STENOSIS [id number] 08/21/2015 09:07:00 08/28/2015 09:56:00 DIS Outpatient LEI LAIRD MD [facility] REHAB LEG WEAKNESS, BACK PAIN, CORE STRENGTHENING [id number] 09/13/2013 09:05:00 09/13/2013 23:59:59 CLS Outpatient VERA DE LA FUENTE MD [facility] RAD SCREENING [id number] 08/16/2013 07:59:00 08/16/2013 23:59:59 CLS Outpatient ZAINAB WOLFE MD [facility] RAD CHEST PAIN [id number] 08/11/2013 01:25:00 08/11/2013 14:00:00 DIS Outpatient ROYAL MENDOZA MD [facility] CHEST PAIN [id number] 12/05/2017 08:30:00 PEN Preadmit LEELEE ZEPEDA MD [facility] CATARACT RIGHT EYE [id number] 11/21/2017 07:30:00 PEN Preadnoah ZEPEDA MD, LEELEE Agosto [facility] LEFT EYE CATARACT [id number] 05/03/2015 12:51:00 Document Registration [id number] 02/28/2011 14:13:00 Document Registration [id number] 02/01/2011 09:26:00 Document Registration [id number] 11/12/2010 08:27:00 Document Registration [id number] 08/10/2010 10:05:00 Document Registration [id number] 08/07/2010 08:25:00 Document Registration [id number] 04/16/2010 08:12:00 Document Registration [id number] 04/10/2010 12:11:00 Document Registration [id number] 03/23/2010 10:20:00 Document Registration [id number] 07/09/2017 14:46:15 07/09/2017 23:59:59 CLS Outpatient Korey Kumar MD, Amy [id number] 09/11/2017 05:50:00 09/14/2017 09:40:00 DIS Inpatient AMY MATTA [facility] 3683 04/28/2017 08:11:52 04/28/2017 23:59:59 CLS Outpatient
--- OUTSIDE RECORDS SUMMARY | 2017-11-21 06:06 | XMS REPORT | Clinical Summary ---
Author Author Kya Ruth Organization [facility], [facility] Address [address] [place] [address] Phone Care Team Providers Care Automotive Technician Instructor Name Role Phone Faraz Kya Unavailable Conditions [...] SMOK STATUS never smoker Tobacco smoking status OHIS FH ANEST CMP No family hx of [...] IMAGING HX MRI -[facility], Apr 2016, [place], [place] summary of prior imaging studies XRAY TYPE MRI xray, type PMH SURGERY 1/3 of pancreas removed 2010 surgery, other , hx of PMH ABD SURG No Past Medical Hx of Abdominal Surgery PMH URO SX No Past Medical Hx of Urological Surgery CARDIO SURG No cardiovascular surgery, hx of HXENTSURG No [facility]; hysterectomy genitourinary section, past surgical history, 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 Vital Signs No information available. Encounters No information available. Social History Concept Description Observation Name Observation Value Units Start Date Alcohol use ETOH USE No Never smoker SMOK STATUS never smoker
--- OUTSIDE RECORDS SUMMARY | 2017-11-21 06:06 | XMS REPORT | Clinical Summary ---
Author Author Korey Kumar MD, James Organization [facility], [facility] Address [address] [place] [address] Phone Care Team Providers Care Script Coordinator Name Role Phone Korey Kumar MD, James Unavailable [ ] Conditions or Problems Problem Name Problem Code Onset Date Status Entry Date Provider Comment Standard Description Annotate Pain in right hip 07336944 (SNOMED CT) Active [facility] Hip pain Degenerative joint disease, hip, right 508741202 (SNOMED CT) Active [facility] Osteoarthritis of hip Medications Medication Instructions Start Date Stop Date Generic Name [facility] Provider TRAMADOL HCL ER 100 MG [id number] i cap daily TRAMADOL HCL [id number] Bela Jones TYLENOL 325 MG CAPS BID ACETAMINOPHEN [id number] Bela Jones LATRICE LOW DOSE 81 MG CHEW daily ASPIRIN 11856008464 Bela Jones ADVIL COLD & SINUS LIQUI-GELS 30-200 MG CAPS PSEUDOEPHEDRINE- IBUPROFEN [id number] Bela Jones Medications Administered No information available. Allergies, Adverse Reactions, Alerts Observed no known allergies at Results Date Name Value Unit Range Flag Description Clinical Summary: Data Submitted by Patient in Portal IMAGING HX MRI -[facility], Apr 2016, [place], [place] summary of prior imaging studies DEP [...] PROB No personal history of problems requiring transitional care liaison LASTPTDATE last year last wound physical therapy [...] SMOK STATUS Never smoker Tobacco smoking status [facility] CARD RSK GRP No cardiac risk group FALLRISK no Fall risk assessment XRAY HX Yes xray history XRAY TYPE MRI xray, type Plan of Care No information available. Procedures Code Procedure Name Date Entry Date CPT-36059 Hip 2 Views [id number] SNOMED-CT: 684071612 Hx of Flu Vax SCT-342154030 SNOMED-CT: 901683990 Hx of Pneumovax Given CPT-1111F Discharge medications reconciled w/ current medication list CPT-G8629 order for antibiotic to be given within 1 hour prior to surgical incision CPT-4040F Pneumococcal vaccine administered or previously received CPT-G8730 Pain assessment documented as positive and f/u plan is documented CPT-1111F Discharge medications reconciled w/ current medication list CPT-1111F Discharge medications reconciled w/ current medication list [id number] SNOMED-CT: 647103786 Hx of Flu Vax CPT-1111F Discharge medications [...] 3141-9 Encounters Code Encounter Date Provider Facility CPT-54507 26935- New Level III Jerman Nair Jr, MD [facility], [facility] Social History Concept Description Observation Name Observation Value Units Start Date Alcohol use ETOH USE No Never smoker SMOK STATUS Never smoker Alcohol use ETOH USE No Never smoker SMOK STATUS never smoker
[2017-11-21] MEDS ORDERED: LIDOCAINE PF 1% 2 ML AMP IR PRN (06:15)
[2017-11-21] MEDS ORDERED: VANCOMYCIN/BSS (COMPOUNDED) 10 MG/ML SYR OP ONE (06:15)
[2017-11-21] MEDS ORDERED: POVIDONE (BETADINE) OPHTH SOLN 5% 30 ML OP ONE (06:15)
[2017-11-21] MEDS ORDERED: EPINEPHrine INJECTION 1 MG/ML AMP INJ ONE (06:15)
[2017-11-21] MEDS ORDERED: TIMOLOL MALEATE 0.5% 5 ML (TIMOPTIC) BTL OU PRN (06:15)
[2017-11-21] MEDS: TETRACAINE 0.5% OPHTH SOLN 4 ML BTL (SINGLE DOSE ONLY) OU PRN ×4 (06:22→06:47)
[2017-11-21 06:25] VITALS: BP 118/72
[2017-11-21] MEDS: CYCLOPENTOLATE 1% (CYCLOGYL) 2 ML DROPS OP SCH ×3 (06:32→06:47)
[2017-11-21] MEDS: PHENYLEPHRINE 10% OPHTH (NEO-SYN) 5 ML BTL OU SCH ×3 (06:32→06:47)
[2017-11-21] MEDS ORDERED: MIDAZOLAM 2 MG/2 ML (VERSED) VIAL ONE (06:57)
[2017-11-21 07:45] VITALS: BP 115/81
--- NOTE | 2017-11-21 08:09 | Ophthalmology Operative Report ---
Cataract removal/placement IOL PREOPERATIVE DIAGNOSIS: Cataract Left Eye POSTOPERATIVE DIAGNOSIS: Cataract Left Eye PROCEDURE: Cataract removal and placement of posterior chamber implant, left eye SURGEON: Roger Zepeda ANESTHESIA: Topical with sedation COMPLICATIONS: None ESTIMATED BLOOD LOSS: Minimal DESCRIPTION OF PROCEDURE: After proper informed consent was obtained, the patient, a 72 female, was taken to the Operating Room and the left eye was anesthetized with tetracaine. They left eye was then prepped and draped in the usual manner. A wire lid speculum was placed. A paracentesis was made at the left hand position. Preservative free lidocaine was injected into the anterior chamber followed by viscoelastic. A clear corneal incision was made in the temporal position. A capsulorrhexis was preformed and the central nuclear and cortical material were removed. The posterior capsule was polished and Gregory 21.5 SN6CWS IOL was placed into the capsular bag. The residual viscoelastic was aspirated and balanced saline solution was injected into the anterior chamber. 1.0 mg of Vancomycin (10mg/ 1.0ml) was injected into the anterior chamber. The would was checked and found to be water tight. The patient tolerated the procedure well without complications. ROGER ZEPEDA MD Nov 21, 2017 08:09
--- NOTE | 2017-11-21 08:34 | Ophthalmologist Pre-Op Note ---
Pre-Operative Progress Note H&P Reviewed The H&P was reviewed, patient examined and no changes noted. Date H&P Reviewed: Nov 21, 2017 Time H&P Reviewed: 07:15 Pre-Op Dx Cataract, Left Eye LEELEE ZEPEDA MD Nov 21, 2017 08:34
--- NOTE | 2017-11-21 10:21 | Anesthesia-General Post-Op ---
MAC Patient Condition Mental Status/LOC: Same as Preop Cardiovascular: Satisfactory Nausea/Vomiting: Absent Respiratory: Satisfactory Pain: Controlled Complications: Absent Post Op Complications Complications None Follow Up Care/Instructions Patient Instructions None needed. Anesthesiology Discharge Order Discharge Order Patient was seen after surgery and was doing well, no complaints, stable vital signs, no apparent adverse anesthesia problems. SHERWIN TOLEDO DO Nov 21, 2017 10:21
== END 2017-11-21 07:50 | disposition home or self-care (01) ==
LOC: SDC 06:01
PROVIDERS: ATTEND Specialist
DX: H26.9 Unspecified cataract (principal)

== ENCOUNTER 2017-11-28 05:36 | Outpatient (CLI) | payer MEDICARE, OTHER ==
[~2017-11-28] VITALS: Ht 170.2 cm; Wt 80.7 kg
== END 2017-11-28 11:17 ==
LOC: PREOP 05:36
PROVIDERS: ATTEND Specialist
DX: Z01.818 Encounter for other preprocedural examination (principal); H25.11 Age-related nuclear cataract, right eye

== ENCOUNTER 2017-12-05 06:47 | Day surgery (SDC) | payer MEDICARE, OTHER ==
[~2017-12-05] VITALS: Ht 170.2 cm; Wt 80.7 kg
--- OUTSIDE RECORDS SUMMARY | 2017-12-05 06:50 | XMS REPORT | Clinical Summary ---
Author Author [facility] Organization [facility] Address Unknown Phone Unavailable Care Team Providers Care Maintenance Planning Clerk Name Role Phone Linette Canada MD PCP Leatha Madsen MD Unavailable José Luis Bruner MD Unavailable Juan Clayton MD Unavailable Jese Trujillo MD Unavailable Joaquim Haynes RN Unavailable Unavailable Kevin Hammonds MD Unavailable Wilma Shepard RN Unavailable Unavailable Source Comments Some departments are not documenting in the electronic medical record. If you do not see the information that you expected, contact Release of Information in the Health Information Management department at [phone] for further assistance in locating additional records.[facility] Allergies Active Allergy Reactions Severity Noted Date [...]
--- OUTSIDE RECORDS SUMMARY | 2017-12-05 06:52 | XMS REPORT | Continuity of Care Document ---
Author Author [facility] Organization [facility] Address Unknown Phone Unavailable Allergies Active Description Code Type Severity Reaction Onset Reported/Identified Relationship to Patient Clinical Status Yes benzocaine [id number] Drug Allergy Unknown N/A 02/01/2011 Yes benzocaine [id number] Drug Allergy Mild RASH 11/17/2017 Medications There [...] Treviño Ot 786.50 CHEST PAIN NOS 03/05/2017 ELISA SANFORD, VERA Inman Ot V76.12 OTH SCREEN [...] Y99.8 OTHER EXTERNAL CAUSE STATUS 04/02/2017 CONCETTA GONZAELZ DO Ot S42.252D DISP FX OF GREATER [...] Z13.820 ENCOUNTER FOR SCREENING FOR OSTEOPOROSIS 08/11/2017 ANDREW TAYLOR APRN Ot M16.11 UNILATERAL PRIMARY OSTEOARTHRITIS, RIGHT 08/11/2017 ANDREW TAYLOR APRN Ot Z01.810 ENCOUNTER FOR PREPROCEDURAL CARDIOVASCUL 08/11/2017 ANDREW TAYLOR APRN Ot Z01.811 ENCOUNTER FOR PREPROCEDURAL RESPIRATORY 08/21/2017 ANDREW TAYLOR APRN Ot M16.11 UNILATERAL PRIMARY OSTEOARTHRITIS, RIGHT 08/21/2017 BRANDON, ANDREW M BUTTON RIVETER Ot Z01.810 ENCOUNTER FOR PREPROCEDURAL CARDIOVASCUL 08/21/2017 ANDREW TAYLOR BUTTON RIVETER Ot Z01.811 ENCOUNTER FOR PREPROCEDURAL RESPIRATORY 09/14/2017 AMY MATTA Final M16.0 Bilateral primary osteoarthritis of hip 09/22/2017 ANDREW TAYLOR [employer] RIVETER Ot M16.11 UNILATERAL PRIMARY OSTEOARTHRITIS, RIGHT 09/22/2017 ANDREW TAYLOR BUTTON RIVETER Ot Z01.810 ENCOUNTER FOR PREPROCEDURAL CARDIOVASCUL 09/22/2017 ANDREW TAYLOR BUTTON RIVETER Ot Z01.811 ENCOUNTER FOR PREPROCEDURAL RESPIRATORY 11/14/2017 [...] EXPOSURE TO OTHER SPECIFIED FACTORS, INI 11/19/2017 LISA GILBERT CONCETTA Rodriguez Ot Y99.8 OTHER EXTERNAL CAUSE STATUS 11/19/2017 LEI LAIRD MD Ot E55.9 VITAMIN D DEFICIENCY, UNSPECIFIED 11/19/2017 LEI LAIRD MD Ot Z12.31 ENCNTR SCREEN MAMMOGRAM FOR MALIGNANT NE 11/19/2017 LEI LAIRD MD Ot Z13.820 ENCOUNTER FOR SCREENING FOR OSTEOPOROSIS 11/19/2017 ANDREW TAYLOR BUTTON RIVETER Ot M16.11 UNILATERAL PRIMARY OSTEOARTHRITIS, RIGHT 11/19/2017 ANDREW TAYLOR BUTTON RIVETER Ot Z01.810 ENCOUNTER FOR PREPROCEDURAL CARDIOVASCUL 11/19/2017 ANDREW TAYLOR APRN Ot Z01.811 ENCOUNTER FOR PREPROCEDURAL RESPIRATORY 11/21/2017 Ot 287.5 THROMBOCYTOPENIA NOS 11/21/2017 AIDEN SANFORD, ZAINAB Treviño Ot 786.50 CHEST PAIN NOS 11/21/2017 LEISA SANFORD, VERA Inman Ot V76.12 OTH SCREEN MAMMO-MALIGN NEOPLASM OF MARK 11/21/2017 VIKA SANFORD, JOE Treviño Ot M48.00 SPINAL STENOSIS, SITE UNSPECIFIED 11/21/2017 LISA GILBERT CONCETTA Rodriguez Ot M75.102 UNSP ROTATR-CUFF TEAR/RUPTR OF LEFT SHOU 11/21/2017 LISA GILBERT CONCETTA Rodriguez Ot S40.012A CONTUSION OF LEFT SHOULDER, INITIAL ENCO 11/21/2017 LISA GILBERT CONCETTA Rodriguez Ot X58.XXXA EXPOSURE TO OTHER SPECIFIED FACTORS, INI 11/21/2017 CONCETTA GONZALEZ DO Jennifer Ot Y99.8 OTHER EXTERNAL CAUSE STATUS 11/21/2017 LEI LAIRD MD Ot E55.9 VITAMIN D DEFICIENCY, UNSPECIFIED 11/21/2017 LEI LAIRD MD Ot Z12.31 ENCNTR SCREEN MAMMOGRAM FOR MALIGNANT NE 11/21/2017 LEI LAIRD MD Ot Z13.820 ENCOUNTER FOR SCREENING FOR OSTEOPOROSIS 11/21/2017 ANDREW TAYLOR APRN Ot M16.11 UNILATERAL PRIMARY OSTEOARTHRITIS, RIGHT 11/21/2017 ANDREW TAYLOR APRN Ot Z01.810 ENCOUNTER FOR PREPROCEDURAL CARDIOVASCUL 11/21/2017 ANDREW TAYLOR APRN Ot Z01.811 ENCOUNTER FOR PREPROCEDURAL RESPIRATORY 11/21/2017 LEELEE ZEPEDA MD Ot H26.9 UNSPECIFIED CATARACT 11/24/2017 LEELEE ZEPEDA MD Ot H26.9 UNSPECIFIED CATARACT 11/28/2017 Ot 287.5 THROMBOCYTOPENIA NOS 11/28/2017 AIDEN SANFORD, ZAINAB Treviño Ot 786.50 CHEST PAIN NOS 11/28/2017 LEISA SANFORD, VERA Inman Ot V76.12 OTH SCREEN MAMMO-MALIGN NEOPLASM OF MARK 11/28/2017 VIKA SANFORD, JOE Treviño Ot M48.00 SPINAL STENOSIS, SITE UNSPECIFIED 11/28/2017 LISA GILBERT CONCETTA Rodriguez Ot M75.102 UNSP ROTATR-CUFF TEAR/RUPTR OF LEFT SHOU 11/28/2017 LISA GILBERT CONCETTA Jennifer Ot S40.012A CONTUSION OF LEFT SHOULDER, INITIAL ENCO 11/28/2017 LISA GILBERT CONCETTA Rodriguez Ot X58.XXXA EXPOSURE TO OTHER SPECIFIED FACTORS, INI 11/28/2017 CONCETTA GONZALEZ DO Jennifer Ot Y99.8 OTHER EXTERNAL CAUSE STATUS 11/28/2017 LEI LAIRD MD Ot E55.9 VITAMIN D DEFICIENCY, UNSPECIFIED 11/28/2017 LEI LAIRD MD Ot Z12.31 ENCNTR SCREEN MAMMOGRAM FOR MALIGNANT NE 11/28/2017 LEI LAIRD MD Ot Z13.820 ENCOUNTER FOR SCREENING FOR OSTEOPOROSIS 11/28/2017 ANDREW TAYLOR APRN Ot M16.11 UNILATERAL PRIMARY OSTEOARTHRITIS, RIGHT 11/28/2017 ANDREW TAYLOR APRN Ot Z01.810 ENCOUNTER FOR PREPROCEDURAL CARDIOVASCUL 11/28/2017 ANDREW TAYLOR BUTTON RIVETER Ot Z01.811 ENCOUNTER FOR PREPROCEDURAL RESPIRATORY 12/01/2017 LEELEE ZEPEDA MD Ot H25.11 AGE-RELATED NUCLEAR CATARACT, RIGHT EYE 12/01/2017 LEELEE ZEPEDA MD Ot Z01.818 ENCOUNTER FOR OTHER PREPROCEDURAL EXAMIN Procedures Code Description Performed By Performed On [id number] Replacement of Right Hip Joint with Synthetic Substitute, Uncemented, Open Approach AMY MATTA 09/11/2017 Results Test Result Range Type and [...] STRIP.AUTOMATED Neg Neg HEMOGLOBIN:PRTHR:PT:URINE:ORD:TEST STRIP.AUTOMATED Neg Neg [facility] - 09/12/17 04:15 SODIUM:SCNC:PT:SER/PLAS:QN: 141 mmol/L 136-145 [...] L 0-31 GFR >60 >=60 GFR NonAfrican Indian >60 >=60 Encounters ACCT No. Visit Date/Time Discharge Status Pt. Type Provider Facility Loc./Unit Complaint [id number] 11/28/2017 05:36:00 11/28/2017 11:17:00 DIS Outpatient LEELEE ZEPEDA MD [facility] PREOP CATARACT RIGHT EYE [id number] 11/21/2017 06:01:00 11/21/2017 07:50:00 DIS Outpatient LEELEE ZEPEDA MD [facility] SDC LEFT EYE CATARACT [id number] 11/17/2017 09:00:00 11/17/2017 10:20:00 DIS Outpatient LEELEE ZEPEDA MD [facility] PREOP CATARACT LEFT EYE [id number] 08/05/2017 10:12:00 08/05/2017 23:59:59 CLS Outpatient ANDREW TAYLOR APRN [facility] CARD M16.11 [id number] 05/01/2017 08:47:00 05/01/2017 23:59:59 CLS Outpatient LEI LAIRD MD [facility] RAD SCREENING, VIT D DEFIC. POST MENOPAUSAL [id number] 02/25/2017 10:01:00 04/02/2017 09:34:00 DIS Outpatient CONCETTA GONZALEZ DO [facility] REHAB GREATER TUBEROSITY FX; LT PROXIMAL HUMERUS [id number] 03/07/2017 09:42:00 03/07/2017 23:59:59 CLS Outpatient CONCETTA GONZALEZ DO [facility] RAD LEFT SHOULDER PAIN [id number] 05/15/2016 15:18:00 05/15/2016 23:59:59 CLS Outpatient JOE SANDY MD [facility] RAD STENOSIS [id number] 08/21/2015 09:07:00 08/28/2015 09:56:00 DIS Outpatient SISI SANFORD, LEI Zhang [facility] REHAB LEG WEAKNESS, BACK PAIN, CORE STRENGTHENING [id number] 09/13/2013 09:05:00 09/13/2013 23:59:59 CLS Outpatient LEISA SANFORD, VERA Inman [facility] RAD SCREENING [id number] 08/16/2013 07:59:00 08/16/2013 23:59:59 CLS Outpatient ZAINAB WOLFE MD [facility] RAD CHEST PAIN [id number] 08/11/2013 01:25:00 08/11/2013 14:00:00 DIS Outpatient KELLY SANFORD, ROYAL Inman [facility] CHEST PAIN [id number] 12/05/2017 06:47:00 ACT Outpatient LEELEE ZEPEDA MD [facility] CATARACT RIGHT EYE [id number] 05/03/2015 12:51:00 Document Registration [id number] 02/28/2011 14:13:00 Document Registration [id number] 02/01/2011 09:26:00 Document Registration [id number] 11/12/2010 08:27:00 Document Registration [id number] 08/10/2010 10:05:00 Document Registration [id number] 08/07/2010 08:25:00 Document Registration [id number] 04/16/2010 08:12:00 Document Registration [id number] 04/10/2010 12:11:00 Document Registration [id number] 03/23/2010 10:20:00 Document Registration [id number] 07/09/2017 14:46:15 07/09/2017 23:59:59 CLS Outpatient Korey Kumar MD, Amy [id number] 09/11/2017 05:50:00 09/14/2017 09:40:00 DIS Inpatient AMY MATTA [facility] NORT [id number] 04/28/2017 08:11:52 04/28/2017 23:59:59 CLS Outpatient
[2017-12-05] MEDS ORDERED: VANCOMYCIN/BSS (COMPOUNDED) 10 MG/ML SYR OP ONE (07:00)
[2017-12-05] MEDS ORDERED: EPINEPHrine INJECTION 1 MG/ML AMP INJ ONE (07:00)
[2017-12-05] MEDS ORDERED: LIDOCAINE PF 1% 2 ML AMP IR PRN (07:00)
[2017-12-05] MEDS ORDERED: TIMOLOL MALEATE 0.5% 5 ML (TIMOPTIC) BTL OU PRN (07:00)
[2017-12-05] MEDS ORDERED: POVIDONE (BETADINE) OPHTH SOLN 5% 30 ML OP ONE (07:00)
[2017-12-05] MEDS: TETRACAINE 0.5% OPHTH SOLN 4 ML BTL (SINGLE DOSE ONLY) OU PRN ×4 (07:13→07:39)
[2017-12-05 07:15] VITALS: BP 162/83
[2017-12-05] MEDS: PHENYLEPHRINE 10% OPHTH (NEO-SYN) 5 ML BTL OU SCH ×3 (07:27→07:39)
[2017-12-05] MEDS: CYCLOPENTOLATE 1% (CYCLOGYL) 2 ML DROPS OP SCH ×3 (07:27→07:39)
[2017-12-05] MEDS ORDERED: MIDAZOLAM 2 MG/2 ML (VERSED) VIAL ONE (08:05)
--- NOTE | 2017-12-05 08:11 | Ophthalmologist Pre-Op Note ---
Pre-Operative Progress Note H&P Reviewed The H&P was reviewed, patient examined and no changes noted. Date H&P Reviewed: December 05, 2017 Time H&P Reviewed: 08:11 Pre-Op Dx Cataract, Right Eye LEELEE ZEPEDA MD December 05, 2017 08:11
--- NOTE | 2017-12-05 08:38 | Ophthalmology Operative Report ---
Cataract removal/placement IOL PREOPERATIVE DIAGNOSIS: Cataract Right Eye POSTOPERATIVE DIAGNOSIS: Cataract Right Eye PROCEDURE: Cataract removal and placement of posterior chamber implant, right eye SURGEON: Roger Zepeda ANESTHESIA: Topical with sedation COMPLICATIONS: None ESTIMATED BLOOD LOSS: Minimal DESCRIPTION OF PROCEDURE: After proper informed consent was obtained, the patient, a 72 female, was taken to the Operating Room and the right eye was anesthetized with tetracaine. They right eye was then prepped and draped in the usual manner. A wire lid speculum was placed. A paracentesis was made at the left hand position. Preservative free lidocaine was injected into the anterior chamber followed by viscoelastic. A clear corneal incision was made in the temporal position. A capsulorrhexis was preformed and the central nuclear and cortical material were removed. The posterior capsule was polished and Gregory 21.0 SN6CWS IOL was placed into the capsular bag. The residual viscoelastic was aspirated and balanced saline solution was injected into the anterior chamber. 0.1ml of Vancomycin (10mg/0.1ml ) was injected into the anterior chamber. The wound was checked and found to be water tight. The patient tolerated the procedure well without complications. ROGER ZEPEDA MD December 05, 2017 08:37
[2017-12-05 08:45] VITALS: BP 126/80
--- NOTE | 2017-12-05 13:04 | Anesthesia-General Post-Op ---
MAC Patient Condition Mental Status/LOC: Same as Preop Cardiovascular: Satisfactory Nausea/Vomiting: Absent Respiratory: Satisfactory Pain: Controlled Complications: Absent Post Op Complications Complications None Follow Up Care/Instructions Patient Instructions None needed. Anesthesiology Discharge Order Discharge Order Patient is doing well, no complaints, stable vital signs, no apparent adverse anesthesia problems. No complications reported per nursing. GLEN HUNTLEY CRNA December 05, 2017 13:04
== END 2017-12-05 08:45 | disposition home or self-care (01) ==
LOC: SDC 06:47
PROVIDERS: ATTEND Specialist
DX: H26.9 Unspecified cataract (principal)

== ENCOUNTER → 2019-01-25 | Outpatient (CLI) | payer MEDICARE, OTHER ==
[2019-01-25 11:32] LABS: BASOPHILS % (AUTO) 1 % (0-10); EOSINOPHILS # (AUTO) 0.1 10^3/uL (0.0-0.3); EOSINOPHILS % (AUTO) 3 % (0-10); HEMATOCRIT 38 % (35-52); HEMOGLOBIN 12.1 G/DL (11.5-16.0); LYMPHOCYTES % (AUTO) 26 % (12-44); MEAN CORPUSCULAR HEMOGLOBIN 30 PG (25-34); MEAN CORPUSCULAR HGB CONC 32 G/DL (32-36); MEAN CORPUSCULAR VOLUME 95 FL (80-99); MONOCYTES # (AUTO) 0.4 X 10^3 (0.0-1.0); MONOCYTES % (AUTO) 9 % (0-12); NEUTROPHILS # (AUTO) 2.4 X 10^3 (1.8-7.8); NEUTROPHILS % (AUTO) 61 % (42-75); PLATELET COUNT 149 10^3/uL (130-400); RED CELL DISTRIBUTION WIDTH 14.5 % (10.0-14.5); WHITE BLOOD COUNT 3.9 10^3/uL (4.3-11.0)
== END ==
LOC: LAB 11:15
PROVIDERS: ATTEND Internal Medicine Gastroenterology
DX: R19.7 Diarrhea, unspecified (principal); R19.8 Other specified symptoms and signs involving the digestive system and abdomen; D64.9 Anemia, unspecified; R79.9 Abnormal finding of blood chemistry, unspecified
CPT/HCPCS: 36415; 85025

== ENCOUNTER 2019-02-02 10:33 | Outpatient (RCR) | payer MEDICARE, OTHER | END 2019-05-03 | disposition home or self-care (01) | LOC: LAB 10:33 | PROVIDERS: ATTEND Internal Medicine Gastroenterology | DX: R79.89 Other specified abnormal findings of blood chemistry (principal); D50.9 Iron deficiency anemia, unspecified | CPT/HCPCS: 82274 ==

== ENCOUNTER → 2020-02-07 | Outpatient (CLI) | payer MEDICARE, OTHER ==
--- NOTE | 2020-02-07 08:57 | Diagnostic Imaging Report ---
Indication: Routine screening. Comparison is made with prior mammogram from 05/01/2017 and 09/13/2013. 2-D and 3-D bilateral screening mammography was performed with CAD. Scattered fibroglandular densities are identified bilaterally. A density in the upper and outer aspect of the left breast, mid depth is more prominent on today's study. Additional views are recommended. There are no suspicious microcalcifications are seen. Axillae are unremarkable. IMPRESSION: BI-RADS 0 Left breast density. Additional views are recommended for further evaluation. ACR BI-RADS Category 0: Incomplete. (Needs additional imaging evaluation). Result letter will be mailed to the patient. Note: At least 10% of breast cancer is not imaged by mammography. Dictated by: Dictated on workstation # [id number]
== END ==
LOC: RAD 07:26
PROVIDERS: ATTEND Family Medicine
DX: Z12.31 Encounter for screening mammogram for malignant neoplasm of breast (principal)
CPT/HCPCS: 77063; 77067

== ENCOUNTER → 2020-02-16 | Outpatient (CLI) | payer MEDICARE, OTHER ==
--- NOTE | 2020-02-16 14:31 | Diagnostic Imaging Report ---
INDICATION: Left breast density. Patient presents for additional views. COMPARISON: Correlation is made with the recent screening study from 02/07/2020. TECHNIQUE: Unilateral left 2D and 3D diagnostic mammography was performed with CAD. This includes spot compression CC and ML views as well as conventional 90 degree lateral views. FINDINGS: The additional views show a persistent slightly irregular density in the lateral left breast at approximately the 3 o'clock location. This is 5 to 7 cm from the nipple. No other suspicious abnormality is detected. IMPRESSION: Persistent irregular density in the outer left breast, as described. Further evaluation with ultrasound is recommended and will be performed today. ACR BI-RADS Category 0: Incomplete. (Needs additional imaging evaluation). Result letter will be mailed to the patient. Note: At least 10% of breast cancer is not imaged by mammography. Dictated by: Dictated on workstation # [id number]
--- NOTE | 2020-02-16 15:06 | Diagnostic Imaging Report ---
INDICATION: Left breast density. Correlation is made with diagnostic mammogram earlier the same day and screening mammogram from 02/07/2020. Sonographic interrogation outer left breast was performed. There is an irregular hypoechoic nodule at the 3:00 location of the left breast, 4 cm from the nipple. This measures 9 mm x 9 mm x 4 mm. This does show some internal blood flow. This likely accounts for the density noted mammographically. This is concerning for a small breast neoplasm. No other sonographic abnormality is identified. The left axilla is unremarkable. IMPRESSION: BI-RADS 4 Irregular solid hypoechoic nodule 3:00 location of the left breast, 4 cm from the nipple. This does correlate in size and location to the mammographic density. This is concerning for a small breast neoplasm. Tissue sampling is recommended. This would be amenable to ultrasound-guided core biopsy. ACR BI-RADS Category 4: Suspicious abnormality. Dictated by: Dictated on workstation # [id number]
== END ==
LOC: RAD 13:25
PROVIDERS: ATTEND Nurse Practitioner Family
DX: N63.25 Unspecified lump in the left breast, overlapping quadrants (principal)
CPT/HCPCS: 76642; 77065; G0279

== ENCOUNTER → 2020-02-18 | Outpatient (CLI) | payer MEDICARE, OTHER ==
[~2020-02-18] VITALS: Ht 170.2 cm; Wt 81.8 kg
[~2020-02-18] MED LIST changes: +LIDOCAINE 1% INJ 20 ML 20 ML VIAL INJ ONE
--- NOTE | 2020-02-18 11:02 | Diagnostic Imaging Report ---
INDICATION: Left breast mass. The patient was brought to the sonographic suite and placed on the table in the supine position. Ultrasound imaging of the left breast was performed to evaluate appropriate entry site. Left breast was then prepped and draped in the usual sterile fashion. A small amount of 1% lidocaine was utilized for local anesthesia. A total of 5 core biopsies were obtained of the hypoechoic nodule at the 3:00 location of the left breast, 4 cm from the nipple, utilizing the 14-gauge Achieve needle. A marker clip was then deployed. Hemostasis was obtained using manual compression. Patient tolerated the procedure well. The patient obtained a postprocedure mammogram. IMPRESSION: Successful ultrasound guided core biopsy of left breast nodule at the 3:00 location, 4 cm from the nipple. Pathology results are currently pending. Dictated by: Dictated on workstation # [id number]
--- NOTE | 2020-02-18 19:26 | Diagnostic Imaging Report ---
INDICATION: Left breast nodule, status post ultrasound-guided biopsy. EXAMINATION: 2D, CC and MLO mammography was performed post ultrasound-guided core biopsy. FINDINGS: Images demonstrate a marker clip in the outer left breast mid depth with postbiopsy changes. IMPRESSION: Marker clip in place, status post ultrasound-guided core biopsy. Pathology results are currently pending. Dictated by: Dictated on workstation # [id number]
== END ==
LOC: RAD 08:34
PROVIDERS: ATTEND Family Medicine
DX: N63.21 Unspecified lump in the left breast, upper outer quadrant (principal)
CPT/HCPCS: 19083; 77065; A4648; G0279

== ENCOUNTER → 2020-03-02 | Outpatient (CLI) | payer MEDICARE, OTHER ==
[~2020-03-02] MED LIST changes: +BARIUM SUSPENSION 2.1% (VANILLA SILQ) 450 ML PO ONE; +CATHETER FLUSH 10 ML SYR IV PRN; +HOLD METFORMIN - RECEIVED CONTRAST 20 ML VIAL IV SCH; +IOHEXOL 350 MG/ML 100 ML (OMNIPAQUE 350) VIAL IV ONE; -LIDOCAINE 1% INJ 20 ML 20 ML VIAL INJ ONE; +NS 100 ML (IVPB) BAG IV ONE
--- NOTE | 2020-03-02 10:44 | Diagnostic Imaging Report ---
EXAMINATION: CT chest with contrast, CT abdomen with and without contrast. TECHNIQUE: Precontrast acquisitions were acquired through the abdomen. Multiple contiguous axial images were obtained through the chest and abdomen after administration of intravenous contrast. All CT scans use one or more of the following dose optimizing techniques: automated exposure control, MA and/or KvP adjustment based on a patient size and exam type, or iterative reconstruction. HISTORY: Breast cancer. COMPARISON: 08/10/2013 and 02/28/2011 FINDINGS: There is no edema or pneumonia. No pleural effusion. No pneumothorax. No suspicious nodules. There is no axillary or supraclavicular lymphadenopathy. There is no mediastinal lymphadenopathy. Calcified mediastinal lymph nodes are consistent with prior granulomatous infection. Heart size is normal. There are no coronary artery calcifications. No pericardial effusion. Aorta is normal in caliber. The liver is normal without focal lesion. There is no biliary ductal dilation. Gallbladder is normal. 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 Spleen is normal. Adrenal glands are normal. The kidneys are normal. There is no hydronephrosis. Visualized bowel is normal in caliber without obstruction or inflammation. No free fluid or air. No abdominal lymphadenopathy. Aorta is normal in caliber without aneurysm. There are no suspicious osseus lesions. IMPRESSION: 1. No metastatic disease seen in the chest or abdomen. Dictated by: Dictated on workstation # [id number]
== END ==
LOC: RAD 09:25
PROVIDERS: ATTEND Internal Medicine Hematology & Oncology
DX: C50.412 Malignant neoplasm of upper-outer quadrant of left female breast (principal)
CPT/HCPCS: 71260; 74170

== ENCOUNTER 2020-04-25 08:37 | Outpatient (RCR) | payer MEDICARE, OTHER ==
[2020-02-28 10:24] LABS: BASOPHILS % (AUTO) 1 % (0-10); EOSINOPHILS # (AUTO) 0.1 10^3/uL (0.0-0.3); EOSINOPHILS % (AUTO) 2 % (0-10); HEMATOCRIT 40 % (35-52); HEMOGLOBIN 13.1 G/DL (11.5-16.0); LYMPHOCYTES % (AUTO) 31 % (12-44); MEAN CORPUSCULAR HEMOGLOBIN 31 PG (25-34); MEAN CORPUSCULAR HGB CONC 33 G/DL (32-36); MEAN CORPUSCULAR VOLUME 94 FL (80-99); MEAN PLATELET VOLUME 11.4 FL (7.4-10.4); MONOCYTES # (AUTO) 0.4 X 10^3 (0.0-1.0); MONOCYTES % (AUTO) 12 % (0-12); NEUTROPHILS # (AUTO) 1.7 X 10^3 (1.8-7.8); NEUTROPHILS % (AUTO) 54 % (42-75); PLATELET COUNT 167 10^3/uL (130-400); WHITE BLOOD COUNT 3.2 10^3/uL (4.3-11.0)
[2020-02-28 10:40] LABS: ALBUMIN 4.7 GM/DL (3.2-4.5); BILIRUBIN,TOTAL 0.8 MG/DL (0.1-1.0); CARBON DIOXIDE 28 MMOL/L (21-32); CHLORIDE 106 MMOL/L (98-107); CREATININE SERUM 0.86 MG/DL (0.60-1.30); GFR ESTIMATED > 60; POTASSIUM 4.5 MMOL/L (3.6-5.0); SODIUM 141 MMOL/L (135-145); TOTAL PROTEIN 6.8 GM/DL (6.4-8.2)
[2020-02-28 10:51] LABS: ALANINE AMINOTRANSFERASE 14 U/L (0-55); ALKALINE PHOSPHATASE 71 U/L (40-136); BUN/CREATININE RATIO 20; GLUCOSE 96 MG/DL (70-105)
[~2020-04-25 08:37] MED LIST changes: -BARIUM SUSPENSION 2.1% (VANILLA SILQ) 450 ML PO ONE; -CATHETER FLUSH 10 ML SYR IV PRN; -HOLD METFORMIN - RECEIVED CONTRAST 20 ML VIAL IV SCH; -IOHEXOL 350 MG/ML 100 ML (OMNIPAQUE 350) VIAL IV ONE; -NS 100 ML (IVPB) BAG IV ONE
[2020-04-25 08:57] LABS: BASOPHILS # (AUTO) 0.1 10^3/uL (0.0-0.1); BASOPHILS % (AUTO) 1 % (0-10); EOSINOPHILS # (AUTO) 0.4 10^3/uL (0.0-0.3); EOSINOPHILS % (AUTO) 9 % (0-10); HEMATOCRIT 39 % (35-52); HEMOGLOBIN 12.7 g/dL (11.5-16.0); LYMPHOCYTES # (AUTO) 1.1 10^3/uL (1.0-4.0); LYMPHOCYTES % (AUTO) 26 % (12-44); MEAN CORPUSCULAR HEMOGLOBIN 31 pg (25-34); MEAN CORPUSCULAR HGB CONC 32 g/dL (32-36); MEAN CORPUSCULAR VOLUME 95 fL (80-99); MEAN PLATELET VOLUME 12.1 fL (9.0-12.2); MONOCYTES # (AUTO) 0.4 10^3/uL (0.0-1.0); MONOCYTES % (AUTO) 10 % (0-12); NEUTROPHILS # (AUTO) 2.2 10^3/uL (1.8-7.8); NEUTROPHILS % (AUTO) 53 % (42-75); PLATELET COUNT 173 10^3/uL (130-400); WHITE BLOOD COUNT 4.1 10^3/uL (4.3-11.0)
[2020-04-25 09:15] LABS: ALANINE AMINOTRANSFERASE 13 U/L (0-55); ALBUMIN 4.4 GM/DL (3.2-4.5); ALKALINE PHOSPHATASE 91 U/L (40-136); BILIRUBIN,TOTAL 0.6 MG/DL (0.1-1.0); BUN/CREATININE RATIO 27; CALCIUM 9.6 MG/DL (8.5-10.1); CARBON DIOXIDE 22 MMOL/L (21-32); CHLORIDE 105 MMOL/L (98-107); CREATININE SERUM 0.82 MG/DL (0.60-1.30); GFR ESTIMATED > 60; GLUCOSE 92 MG/DL (70-105); SODIUM 140 MMOL/L (135-145); TOTAL PROTEIN 6.6 GM/DL (6.4-8.2)
== END 2020-05-28 | disposition home or self-care (01) ==
LOC: ONC 08:37
PROVIDERS: ATTEND Internal Medicine Hematology & Oncology
DX: C50.412 Malignant neoplasm of upper-outer quadrant of left female breast (principal); E03.9 Hypothyroidism, unspecified; Z17.0 Estrogen receptor positive status [ER+]; Z85.07 Personal history of malignant neoplasm of pancreas; Z90.89 Acquired absence of other organs
CPT/HCPCS: 80053; 85025; G0463; 99213; 99214

== ENCOUNTER → 2022-01-15 | Outpatient (CLI) | payer MEDICARE, OTHER ==
--- NOTE | 2022-01-15 08:52 | Diagnostic Imaging Report ---
INDICATION: Postmenopausal female. Right hip replacement COMPARISON: 05/01/2017 FINDINGS: AP Spine L1-L4: [BMD (g/cm2): 1.078] [T-Score: -1.0] [Z-Score: -0.1] [BMD Previous: 1.104] [BMD % Change: -2.4] LT Hip Neck: [BMD (g/cm2): 0.936] [T-Score: -1.4] [Z-Score: -0.1] LT Hip Total: [BMD (g/cm2):0.888] [T-Score:-0.9] [Z-Score: 0.2] [BMD Previous: 0.920] [BMD % Change: -3.5*] RT Hip Neck: [BMD (g/cm2):NA] [T-Score:NA] [Z-Score:NA] RT Hip Total: [BMD (g/cm2):NA] [T-score:NA] [Z-Score:NA] [BMD Previous:NA] [BMD % Change:NA] *Indicates significant change from prior examination based on 95% confidence level. World Health Organization criteria for BMD interpretation classify patients as Normal (T-score at or above -1.0), Osteopenic (T-score between -1.0 and -2.5) or Osteoporotic (T-score at or below -2.5). LIMITATIONS AND MODIFICATION: Degenerative changes in the lumbar spine may falsely elevate bone density. In addition, the lumbar spine levels do not appear to line up with the levels on the prior exam, and may represent T12-L3. FRACTURE RISK (FRAX SCORE): The ten year probability of (%): Major Osteoporotic Fracture: [10.5] Hip Fracture: [1.9] IMPRESSION: 1. Osteopenia (Low bone mass). 2. Bone mineral density has decreased by a statistically significant amount, as detailed above. 3. See below National Osteoporosis Foundation guidelines on when to potentially initiate pharmacologic therapy. Based on the National Osteoporosis Foundation Guidelines, pharmacologic treatment should be initiated in any of the following, unless clinical conditions suggest otherwise: * Any patient with prior fragility fracture of the hip or vertebrae. A spine fracture indicates 5X risk for subsequent spine fracture and 2X risk for subsequent hip fracture. * Osteoporosis (T-score <-2.5). * Postmenopausal women and men age 50 and older with low bone mass/osteopenia (T-score between -1.0 and -2.5) by DXA and 10-year major osteoporotic fracture greater than 20% or a 10-year probability of hip fracture greater than 3%. These fracture risks are supplied above in the FRAX score, if applicable. * Clinician judgement and/or patient preferences may indicate treatment for people with 10-year fracture probabilities above or below these levels. Dictated by: Dictated on workstation # [id number]
== END ==
LOC: RAD 08:30
PROVIDERS: ATTEND Family Medicine
DX: M85.80 Other specified disorders of bone density and structure, unspecified site (principal); Z78.0 Asymptomatic menopausal state; Z96.641 Presence of right artificial hip joint
CPT/HCPCS: 77080

== ENCOUNTER 2022-01-22 09:39 | Outpatient (RCR) | payer MEDICARE, OTHER | END 2022-01-24 | disposition home or self-care (01) | PROVIDERS: ATTEND Family Medicine | DX: N81.89 Other female genital prolapse (principal); M54.50 Low back pain, unspecified; M25.551 Pain in right hip ==

== ENCOUNTER 2022-02-01 14:36 | Outpatient (RCR) | payer MEDICARE, OTHER | END 2022-02-21 10:28 | disposition home or self-care (01) | PROVIDERS: ATTEND Family Medicine | DX: N81.89 Other female genital prolapse (principal); M54.50 Low back pain, unspecified; M25.551 Pain in right hip ==

== ENCOUNTER 2023-05-23 09:45 | Outpatient (RCR) | payer MEDICARE, OTHER | END 2023-05-27 | disposition home or self-care (01) | PROVIDERS: ATTEND Physician Assistant | DX: M25.551 Pain in right hip (principal); M54.41 Lumbago with sciatica, right side; Z96.641 Presence of right artificial hip joint ==

== ENCOUNTER 2023-06-24 11:13 | Outpatient (RCR) | payer MEDICARE, OTHER | END 2023-06-26 | disposition home or self-care (01) | PROVIDERS: ATTEND Physician Assistant | DX: M25.551 Pain in right hip (principal); M54.41 Lumbago with sciatica, right side; Z96.641 Presence of right artificial hip joint ==